=== PATIENT | male | born 1940 ===

== ENCOUNTER 2017-01-13 08:46 | Inpatient (IN) | payer MEDICARE ==
[2017-01-13 08:54] VITALS: BMI 35.2
[2017-01-13] MEDS ORDERED: Sodium Chloride 0.9% 1,000 ML IV STA (09:34)
[2017-01-13] MEDS ORDERED: Iohexol 240 (50 ml) PO ONE (09:34)
[2017-01-13 09:52] LABS: VENOUS BLOOD GAS BASE EXCESS 0.6 mmol/L (0.0-2.0); VENOUS BLOOD GAS PCO2 36 mmHg (40-60); VENOUS BLOOD PH 7.44 (7.32-7.43)
[2017-01-13] MEDS ORDERED: Iohexol 240 (50 ml) ONE (09:59)
[2017-01-13 10:09] LABS: BASO % 0.1 % (0.0-2.0); EOS % 0.1 % (0.0-4.0); HEMATOCRIT 38.7 % (35.0-51.0); LYMPH # 0.2 K/uL (1.0-4.3); LYMPH % 1.7 % (20.0-40.0); MEAN CELL VOLUME 86.7 fl (80.0-94.0); MEAN CORPUSCULAR HEMOGLOBIN 28.9 pg (27.0-31.0); MEAN CORPUSCULAR HGB CONC 33.4 g/dL (33.0-37.0); MEAN PLATELET VOLUME 7.7 fl (7.2-11.7); MONO # 0.2 K/uL (0.0-0.8); MONO % 2.4 % (0.0-10.0); NEUT # 8.9 K/uL (1.8-7.0); NEUT % 95.7 % (50.0-75.0); NRBC % 0.1 % (0.0-0.0); PLATELET COUNT 128 K/uL (130-400); RED CELL DISTRIBUTION WIDTH 13.7 % (11.5-14.5); WHITE BLOOD COUNT 9.3 K/uL (4.8-10.8)
[2017-01-13 10:13] LABS: PARTIAL THROMBOPLASTIN TIME 27.8 Seconds (25.6-37.1)
[2017-01-13 10:25] LABS: ALB/GLOB RATIO 1.2 (1.0-2.1); ALKALINE PHOSPHATASE 73 U/L (38-126); ALT/SGPT 31 U/L (21-72); AST/SGOT 31 U/L (17-59); BILIRUBIN,TOTAL 0.6 mg/dl (0.2-1.3); BLOOD UREA NITROGEN 13 mg/dl (9-20); CALCIUM 8.8 mg/dL (8.4-10.2); CARBON DIOXIDE 24 mmol/L (22-30); CHLORIDE 102 mmol/L (98-107); GFR AFRICAN-AMERICAN > 60; GLUCOSE,RANDOM 184 mg/dL (75-110); MAGNESIUM 1.7 MG/DL (1.6-2.3); PHOSPHOROUS 2.2 mg/dl (2.5-4.5); POTASSIUM 3.7 MMOL/L (3.6-5.0); SODIUM 138 mmol/l (132-148); TOTAL PROTEIN 7.1 G/DL (6.3-8.2)
[2017-01-13 10:34] LABS: RBC URINE 6 /hpf (0-3); URINE BACTERIA OCC (<OCC); URINE BILIRUBIN NEGATIVE (NEGATIVE); URINE BLOOD LARGE (NEGATIVE); URINE COLOR YELLOW (YELLOW); URINE GLUCOSE (UA) NEG (Normal); URINE KETONE NEGATIVE (NEGATIVE); URINE LEUKOCYTE ESTERASE SMALL Leu/uL (Negative); URINE PROTEIN 100 mg/dL (NEGATIVE); URINE UROBILINOGEN 0.2-1.0 mg/dL (0.2-1.0); WBC URINE 24 /hpf (0-5)
[2017-01-13 10:52] LABS: GIANT PLATELETS PRESENT; NEUTROPHIL 92 % (42-75); PLATELET CLUMPS PRESENT; TOTAL CELLS COUNTED 100
--- NOTE | 2017-01-13 11:17 | RAD ---
HISTORY: Sepsis Patient COMPARISON: No prior. FINDINGS: LUNGS: The lungs are well inflated and clear. PLEURA: No significant pleural effusion identified, no pneumothorax apparent. CARDIOVASCULAR: Normal. OSSEOUS STRUCTURES: No significant abnormalities. VISUALIZED UPPER ABDOMEN: Normal. OTHER FINDINGS: None. IMPRESSION: No active pulmonary disease.
--- NOTE | 2017-01-13 12:07 | ED PDOC ---
HPI: General Adult Time Seen by Provider: 01/13/17 09:06 Chief Complaint (Nursing): Fever Chief Complaint (Provider): fever, abdominal pain History Per: Patient History/Exam Limitations: no limitations Onset/Duration Of Symptoms: Days (1), Gradual Current Symptoms Are (Timing): Still Present Additional Complaint(s): 76yo male c/o fever, malaise, upper abdominal pain and generalized weakness, nausea and mild headache since yesterday. Has chronic back pain for which PMD ordered an MRI lumbar spine. Denies urinary symptoms, cough, diarrhea, rash or sore throat. Past Medical History Reviewed: Historical Data, Nursing Documentation, Vital Signs Vital Signs: Last Vital Signs Temp 98.6 F 01/14/17 12:29 Pulse 83 01/14/17 12:29 Resp 20 01/14/17 12:29 BP 102/55 L 01/14/17 12:29 Pulse Ox 96 01/14/17 12:29 - Medical History PMH: Diabetes, HTN, Hypercholesterolemia Other PMH: neuropathy - Surgical History Surgical History: No Surg Hx - Family History Family History: States: Unknown Family Hx - Living Arrangements Living Arrangements: With Family - Social History Current smoker - smoking cessation education provided: No - Home Medications Home Medications: Ambulatory Orders Medication Instructions Recorded Aspirin [Ecotrin] 81 mg PO DAILY 01/13/17 Furosemide [Lasix] 20 mg PO DAILY 01/13/17 Gabapentin [Neurontin] 600 mg PO HS 01/13/17 GlipiZIDE [Glucotrol] 10 mg PO BID 01/13/17 Losartan [Cozaar] 50 mg PO DAILY 01/13/17 Omeprazole [Omeprazole] 20 mg PO DAILY 01/13/17 Simvastatin [Zocor] 20 mg PO DAILY 01/13/17 - Allergies Allergies/Adverse Reactions: Allergies Allergy/AdvReac Type Severity Reaction Status Date / Time No Known Allergies Allergy Verified 01/13/17 09:11 Review of Systems Constitutional: Positive for: Fever, Chills, Weakness, Malaise Eyes: Negative for: Vision Change, Eyelid Inflammation ENT: Negative for: Nose Discharge, Throat Pain Cardiovascular: Negative for: Chest Pain, Palpitations Respiratory: Negative for: Cough, Shortness of Breath Gastrointestinal: Positive for: Nausea, Abdominal Pain. Negative for: Vomiting , Diarrhea Genitourinary Male: Negative for: Dysuria, Hematuria Musculoskeletal: Positive for: Back Pain. Negative for: Neck Pain, Arm Pain, Leg Pain Skin: Negative for: Rash, Lesions, Jaundice Neurological: Negative for: Weakness, Numbness Psych: Negative for: Anxiety Physical Exam - Reviewed Nursing Documentation Reviewed: Yes Vital Signs Reviewed: Yes - Physical Exam Appears: Positive for: Well, Non-toxic, No Acute Distress Head Exam: Positive for: ATRAUMATIC, NORMAL INSPECTION, NORMOCEPHALIC Skin: Positive for: Normal Color, Warm, DRY Eye Exam: Positive for: EOMI, Normal appearance, PERRL ENT: Positive for: Pharyngeal Erythema. Negative for: Tonsillar Exudate, Tonsillar Swelling Neck: Positive for: Normal, Painless ROM Cardiovascular/Chest: Positive for: Regular Rate, Rhythm Respiratory: Positive for: CNT, Normal Breath Sounds Gastrointestinal/Abdominal: Positive for: Bowel Sounds, Soft, Tenderness (upper abd tenderness). Negative for: Guarding, Rebound Back: Positive for: Muscle Spasm Extremity: Positive for: Normal ROM. Negative for: Tenderness, Deformity, Swelling Neurologic/Psych: Positive for: Alert, Oriented. Negative for: Motor/Sensory Deficits - Laboratory Results Result Diagrams: 01/14/17 04:30 01/14/17 04:30 - ECG O2 Sat by Pulse Oximetry: 95 Medical Decision Making Medical Decision Making: patient found to be febrile, workup for sepsis initiated Labs, lactate, IVF bolus, CT abd pelv and CXR, UA ordered. Tylenol given for fever. labs reviewed, revealing negative flu swab, normal WBC, but elevated lactate 2.6 Repeat lactate ordered. Accession No. : [id number] Patient Name / ID : BISHOP DURAN / [id number] Exam Date : 01/13/2017 12:40:12 ( Approved ) Study Comment : Sex / Age : M / 76Y Creator : Jamie Reed MD Dictator : Jamie Reed MD Housing Counselor : Stitching Department Supervisor : Jamie Reed MD Approver2 : Report Date : 01/13/2017 13:50:18 My Comment : PROCEDURE: CT Abdomen and Pelvis with contrast HISTORY: upper abdominal pain, fever COMPARISON: None. TECHNIQUE: Contrast dose: Omnipaque 300, 95 cc Radiation dose: Total exam DLP = 1027.25 mGy-cm. This CT exam was performed using one or more of the following dose reduction techniques: Automated exposure control, adjustment of the mA and/or kV according to patient size, and/or use of iterative reconstruction technique. FINDINGS: LOWER THORAX: Unremarkable. LIVER: Mild hepatic steatosis appreciated there is a small lucency is seen in the right lobe liver inferiorly, artifact by oral contrast in the hepatic flexure. GALLBLADDER AND BILE DUCTS: The gallbladder appears unremarkable however the common bile duct is dilated up to 12 mm with the common hepatic duct dilated to 14 mm without radiodense choledocholithiasis identified. PANCREAS: Unremarkable. No gross lesion or ductal dilatation. SPLEEN: Unremarkable. ADRENALS: Unremarkable. No mass. KIDNEYS AND URETERS: Unremarkable. No hydronephrosis. No solid mass. VASCULATURE: Unremarkable. No aortic aneurysm. BOWEL: Extensive sigmoid diverticulosis identified without diverticulitis. No obstruction. No gross mural thickening. APPENDIX: Normal appendix. PERITONEUM: Unremarkable. No free fluid. No free air. A small umbilical hernia is identified containing only fat. LYMPH NODES: Unremarkable. No enlarged lymph nodes. BLADDER: Unremarkable. REPRODUCTIVE: Mildly enlarged prostate gland noted. BONES: No acute fracture. OTHER FINDINGS: Alternate venous drainage is appreciated at the left chest wall inferiorly. IMPRESSION: 1. Dilated common hepatic and bile ducts are identified without radiodense choledocholithiasis associated. The gallbladder is unremarkable appearing. No prominent medium to small size biliary dilatation throughout the intrahepatic duct system. 2. Extensive sigmoid diverticulosis without diverticulitis. 3. Mild hepatic steatosis. A small lucency is difficult to characterize or artifact from oral contrast at the hepatic flexure at the right lobe liver inferiorly. US RUQ performed, no gallstones present per radiology report. repeat lactate improved Zosyn initiated Admit [facility] Dr Weir/Hilario Armas Disposition - Clinical Impression Clinical Impression: Sepsis, UTI (urinary tract infection), Common bile duct dilatation - Patient ED Disposition Is Patient to be Admitted: Yes - Disposition Disposition Time: 12:05 Condition: GOOD - Pt Status Changed To: Hospital Disposition Of: Inpatient - Admit Certification Admit to Inpatient:: After my assessment, the patient will require hospitalization for at least two midnights. This is because of the severity of symptoms shown, intensity of services needed, and/or the medical risk in this patient being treated as an outpatient. - POA Present On Arrival: None
[2017-01-13] MEDS ORDERED: Iohexol 300 100 ML IJ ONE (12:40)
[2017-01-13] MEDS ORDERED: Sodium Chloride 0.9% 50 ML IV ONE (12:40)
[2017-01-13 13:35] LABS: VENOUS BLOOD GAS BASE EXCESS -0.3 mmol/L (0.0-2.0); VENOUS BLOOD GAS PCO2 38 mmHg (40-60); VENOUS BLOOD PH 7.41 (7.32-7.43)
--- NOTE | 2017-01-13 13:52 | CT ---
PROCEDURE: CT Abdomen and Pelvis with contrast HISTORY: upper abdominal pain, fever COMPARISON: None. TECHNIQUE: Contrast dose: Omnipaque 300, 95 cc Radiation dose: Total exam DLP = 1027.25 mGy-cm. This CT exam was performed using one or more of the following dose reduction techniques: Automated exposure control, adjustment of the mA and/or kV according to patient size, and/or use of iterative reconstruction technique. FINDINGS: LOWER THORAX: Unremarkable. LIVER: Mild hepatic steatosis appreciated there is a small lucency is seen in the right lobe liver inferiorly, artifact by oral contrast in the hepatic flexure. GALLBLADDER AND BILE DUCTS: The gallbladder appears unremarkable however the common bile duct is dilated up to 12 mm with the common hepatic duct dilated to 14 mm without radiodense choledocholithiasis identified. PANCREAS: Unremarkable. No gross lesion or ductal dilatation. SPLEEN: Unremarkable. ADRENALS: Unremarkable. No mass. KIDNEYS AND URETERS: Unremarkable. No hydronephrosis. No solid mass. VASCULATURE: Unremarkable. No aortic aneurysm. BOWEL: Extensive sigmoid diverticulosis identified without diverticulitis. No obstruction. No gross mural thickening. APPENDIX: Normal appendix. PERITONEUM: Unremarkable. No free fluid. No free air. A small umbilical hernia is identified containing only fat. LYMPH NODES: Unremarkable. No enlarged lymph nodes. BLADDER: Unremarkable. REPRODUCTIVE: Mildly enlarged prostate gland noted. BONES: No acute fracture. OTHER FINDINGS: Alternate venous drainage is appreciated at the left chest wall inferiorly. IMPRESSION: 1. Dilated common hepatic and bile ducts are identified without radiodense choledocholithiasis associated. The gallbladder is unremarkable appearing. No prominent medium to small size biliary dilatation throughout the intrahepatic duct system. 2. Extensive sigmoid diverticulosis without diverticulitis. 3. Mild hepatic steatosis. A small lucency is difficult to characterize or artifact from oral contrast at the hepatic flexure at the right lobe liver inferiorly.
[2017-01-13] MEDS ORDERED: Piperacill/Tazo 4.5gm in Dex 4.5 GM/100 ML BAG IVPB STA (14:03)
[2017-01-13] MEDS: Piperacillin/Tazobact 3.375 GM in Sodium Chloride 0.9% 100 ML IVPB SCH ×2 (14:36→21:51)
[2017-01-13] MEDS: Sodium Chloride 0.9% 1,000 ML IV SCH ×2 (14:37→21:52)
--- NOTE | 2017-01-13 16:06 | US ---
HISTORY: RUQ eval CBD/GB/pancreas COMPARISON: None. TECHNIQUE: Sonographic evaluation of the right upper quadrant of the abdomen. FINDINGS: LIVER: Measures 18.9 cm in length. Normal echogenicity of the liver parenchyma. No mass. No intrahepatic bile duct dilatation. However, pattern megaly is not completely excluded. GALLBLADDER: The gallbladder is not fully distended but mural thickening up to 2.8 mm is in question. No pericholecystic fluid collection or cholelithiasis. COMMON BILE DUCT: Measures 12.0 mm. No stones. No dilatation. PANCREAS: The pancreas completely obscured by overlying bowel gas. RIGHT KIDNEY: Measures 11.2 cm in length. Normal echogenicity. No calculus, mass, or hydronephrosis. AORTA: No aneurysmal dilatation. IVC: Unremarkable. OTHER FINDINGS: None . IMPRESSION: Limited examination due to overlying bowel gas and body habitus with pancreas completely obscured. Mild hepatomegaly is in question without definite demonstrated mass or intrahepatic biliary dilatation. Common bile duct is dilated to 12.0 mm without choledocholithiasis. Mildly thickened gallbladder wall is appreciated without cholelithiasis or pericholecystic fluid collection the gallbladder is not fully distended either, limiting the evaluation.
[2017-01-14] MEDS: Piperacillin/Tazobact 3.375 GM in Sodium Chloride 0.9% 100 ML IVPB SCH ×4 (03:10→21:25)
[2017-01-14 05:56] LABS: BASO % 0.8 % (0.0-2.0); EOS % 0.1 % (0.0-4.0); HEMATOCRIT 34.8 % (35.0-51.0); LYMPH # 0.2 K/uL (1.0-4.3); LYMPH % 5.9 % (20.0-40.0); MEAN CELL VOLUME 86.4 fl (80.0-94.0); MEAN CORPUSCULAR HEMOGLOBIN 28.6 pg (27.0-31.0); MEAN CORPUSCULAR HGB CONC 33.1 g/dL (33.0-37.0); MEAN PLATELET VOLUME 7.8 fl (7.2-11.7); MONO # 0.2 K/uL (0.0-0.8); MONO % 5.1 % (0.0-10.0); NEUT # 3.5 K/uL (1.8-7.0); NEUT % 88.1 % (50.0-75.0); NRBC % 0.1 % (0.0-0.0); RED CELL DISTRIBUTION WIDTH 13.8 % (11.5-14.5)
[2017-01-14] MEDS: Sodium Chloride 0.9% 1,000 ML IV SCH ×2 (06:19→17:07)
[2017-01-14 06:26] LABS: ALKALINE PHOSPHATASE 65 U/L (38-126); ALT/SGPT 51 U/L (21-72); AST/SGOT 37 U/L (17-59); BILIRUBIN,TOTAL 0.5 mg/dl (0.2-1.3); BLOOD UREA NITROGEN 10 mg/dl (9-20); CARBON DIOXIDE 23 mmol/L (22-30); CHLORIDE 106 mmol/L (98-107); GFR AFRICAN-AMERICAN > 60; GLUCOSE,RANDOM 138 mg/dL (75-110); POTASSIUM 3.3 MMOL/L (3.6-5.0); SODIUM 136 mmol/l (132-148); TOTAL PROTEIN 5.8 G/DL (6.3-8.2)
[2017-01-14] MEDS ORDERED: Potassium Chloride 20 mEq ER Tab PO ONE (08:21)
--- NOTE | 2017-01-14 08:25 | CP.PCM.HP ---
History of Present Illness - History of Present Illness History of Present Illness: pt admitted for fever, ruq pain, abn UA and dialated cbd on imaging. at present afebrile and w/o pain. no f/c, n/v/d. states symptoms started1 night prior to arrival. imaging and bw noted. k 3.3 today. wbc 4 down from 9. plt noted. Present on Admission - Present on Admission Any Indicators Present on Admission: Yes History of Uncontrolled Diabetes: Yes Review of Systems - Constitutional Constitutional: As Per HPI, Fever, Malaise - Gastrointestinal Gastrointestinal: As Per HPI, Abdominal Pain Past Patient History - Past Medical History & Family History Past Medical History?: Yes - Past Social History Smoking Status: Never Smoked - CARDIAC Hx Cardiac Disorders: Yes Hx Hypercholesterolemia: Yes Hx Hypertension: Yes - PULMONARY Hx Respiratory Disorders: No - NEUROLOGICAL Hx Neurological Disorder: No - HEENT Hx HEENT Problems: No - RENAL Hx Chronic Kidney Disease: No - ENDOCRINE/METABOLIC Hx Endocrine Disorders: Yes Hx Diabetes Mellitus Type 2: Yes - HEMATOLOGICAL/ONCOLOGICAL Hx Blood Disorders: No - INTEGUMENTARY Hx Dermatological Problems: No - MUSCULOSKELETAL/RHEUMATOLOGICAL Hx Musculoskeletal Disorders: No Hx Falls: No - GASTROINTESTINAL Hx Gastrointestinal Disorders: No - GENITOURINARY/GYNECOLOGICAL Hx Genitourinary Disorders: No - PSYCHIATRIC Hx Psychophysiologic Disorder: No Hx Substance Use: No - SURGICAL HISTORY Hx Surgeries: Yes Other/Comment: Hemorrhoidectomy - ANESTHESIA Hx Anesthesia: Yes Hx Anesthesia Reactions: No Hx Malignant Hyperthermia: No Has any member of the family had a problem w/ anesthesia?: No Meds Allergies/Adverse Reactions: Allergies Allergy/AdvReac Type Severity Reaction Status Date / Time No Known Allergies Allergy Verified 01/13/17 09:11 Physical Exam - Constitutional Appears: Well, Non-toxic, No Acute Distress - Head Exam Head Exam: ATRAUMATIC, NORMAL INSPECTION, NORMOCEPHALIC - Eye Exam Eye Exam: EOMI, Normal appearance, PERRL Pupil Exam: NORMAL ACCOMODATION, PERRL - ENT Exam ENT Exam: Mucous Membranes Moist, Normal Exam - Neck Exam Neck exam: Positive for: Normal Inspection - Respiratory Exam Respiratory Exam: Clear to Auscultation Bilateral, NORMAL BREATHING PATTERN - Cardiovascular Exam Cardiovascular Exam: REGULAR RHYTHM, RRR, +S1, +S2 - GI/Abdominal Exam GI & Abdominal Exam: Normal Bowel Sounds, Soft. absent: Tenderness - Extremities Exam Extremities exam: Positive for: full ROM, normal capillary refill, normal inspection, pedal pulses present - Back Exam Back exam: NORMAL INSPECTION - Neurological Exam Neurological exam: Alert, CN II-XII Intact, Normal Gait, Oriented x3, Reflexes Normal - Psychiatric Exam Psychiatric exam: Normal Affect, Normal Mood - Skin Skin Exam: Dry, Intact, Normal Color, Warm Results - Vital Signs Recent Vital Signs: Last Vital Signs Temp 98.5 F 01/14/17 05:26 Pulse 74 01/14/17 05:26 Resp 20 01/14/17 05:26 BP 98/54 L 01/14/17 05:26 Pulse Ox 95 01/14/17 05:26 - Labs Result Diagrams: 01/14/17 04:30 01/14/17 04:30 Labs: Laboratory Results - last 24 hr 01/13/17 01/13/17 01/13/17 09:30 09:38 09:57 WBC 9.3 RBC 4.47 Hgb 12.9 Hct 38.7 MCV 86.7 MCH 28.9 MCHC 33.4 RDW 13.7 Plt Count 128 L MPV 7.7 Neut % (Auto) 95.7 H Lymph % (Auto) 1.7 L [place] % (Auto) 2.4 Eos % (Auto) 0.1 Baso % (Auto) 0.1 Neut # 8.9 H Lymph # 0.2 L [place] # 0.2 Eos # 0.0 Baso # 0.0 Neutrophils % (Manual) 92 H Band Neutrophils % 3 H Lymphocytes % (Manual) 3 L Monocytes % (Manual) 2 Platelet Estimate Slightly decreased L Plt Clumps, EDTA Present Giant Platelets Present PT INR APTT pO2 40 VBG pH 7.44 H VBG pCO2 36 L VBG HCO3 24.9 VBG Total CO2 25.6 VBG O2 Sat (Calc) 85.3 H VBG Base Excess 0.6 VBG Potassium 3.5 L A-a O2 Difference 65.0 Sodium 134.0 Chloride 101.0 Glucose 205 H Lactate 2.6 H FiO2 21.0 Crit Value Called To Magno tomlinson Crit Value Called By 15 Crit Value Read Back Y Blood Gas Notified Time 953 Potassium Carbon Dioxide Anion Gap BUN Creatinine Est GFR ( Amer) Est GFR (Non-Af Amer) Random Glucose Calcium Phosphorus Magnesium Total Bilirubin AST ALT Alkaline Phosphatase Total Protein Albumin Globulin Albumin/Globulin Ratio Lipase 26 Venous Blood Potassium 3.5 L Urine Color Urine Clarity Urine pH Ur Specific Martin Urine Protein Urine Glucose (UA) Urine Ketones Urine Blood Urine Nitrate Urine Bilirubin Urine Urobilinogen Ur Leukocyte Esterase Urine RBC (Auto) Urine Microscopic WBC Urine Bacteria Influenza Typ A,B (EIA) 01/13/17 01/13/17 01/13/17 09:57 09:57 09:57 WBC RBC Hgb Hct MCV MCH MCHC RDW Plt Count MPV Neut % (Auto) Lymph % (Auto) [place] % (Auto) Eos % (Auto) Baso % (Auto) Neut # Lymph # [place] # Eos # Baso # Neutrophils % (Manual) Band Neutrophils % Lymphocytes % (Manual) Monocytes % (Manual) Platelet Estimate Plt Clumps, EDTA Giant Platelets PT 15.0 H INR 1.3 H APTT 27.8 pO2 VBG pH VBG pCO2 VBG HCO3 VBG Total CO2 VBG O2 Sat (Calc) VBG Base Excess VBG Potassium A-a O2 Difference Sodium 138 Chloride 102 Glucose Lactate FiO2 Crit Value Called To Crit Value Called By Crit Value Read Back Blood Gas Notified Time Potassium 3.7 Carbon Dioxide 24 Anion Gap 15 BUN 13 Creatinine 1.0 Est GFR ( Amer) > 60 Est GFR (Non-Af Amer) > 60 Random Glucose 184 H Calcium 8.8 Phosphorus 2.2 L Magnesium 1.7 Total Bilirubin 0.6 AST 31 ALT 31 Alkaline Phosphatase 73 Total Protein 7.1 Albumin 3.8 Globulin 3.2 Albumin/Globulin Ratio 1.2 Lipase Venous Blood Potassium Urine Color Urine Clarity Urine pH Ur Specific Martin Urine Protein Urine Glucose (UA) Urine Ketones Urine Blood Urine Nitrate Urine Bilirubin Urine Urobilinogen Ur Leukocyte Esterase Urine RBC (Auto) Urine Microscopic WBC Urine Bacteria Influenza Typ A,B (EIA) Negative for flu a/b 01/13/17 01/13/17 01/14/17 09:57 13:30 04:30 WBC 4.0 L D RBC 4.03 L Hgb 11.5 L Hct 34.8 L MCV 86.4 MCH 28.6 MCHC 33.1 RDW 13.8 Plt Count 103 L D MPV 7.8 Neut % (Auto) 88.1 H Lymph % (Auto) 5.9 L [place] % (Auto) 5.1 Eos % (Auto) 0.1 Baso % (Auto) 0.8 Neut # 3.5 Lymph # 0.2 L [place] # 0.2 Eos # 0.0 Baso # 0.0 Neutrophils % (Manual) Band Neutrophils % Lymphocytes % (Manual) Monocytes % (Manual) Platelet Estimate Plt Clumps, EDTA Giant Platelets PT INR APTT pO2 34 VBG pH 7.41 VBG pCO2 38 L VBG HCO3 23.8 VBG Total CO2 25.3 VBG O2 Sat (Calc) 78.2 H VBG Base Excess -0.3 L VBG Potassium 3.3 L A-a O2 Difference 68.0 Sodium 134.0 Chloride 103.0 Glucose 144 H Lactate 1.4 FiO2 21.0 Crit Value Called To Md mayra snell Crit Value Called By 15 Crit Value Read Back Y Blood Gas Notified Time 1334 Potassium Carbon Dioxide Anion Gap BUN Creatinine Est GFR ( Amer) Est GFR (Non-Af Amer) Random Glucose Calcium Phosphorus Magnesium Total Bilirubin AST ALT Alkaline Phosphatase Total Protein Albumin Globulin Albumin/Globulin Ratio Lipase Venous Blood Potassium 3.3 L Urine Color Yellow Urine Clarity Slighty-cloudy Urine pH 5.0 Ur Specific Martin 1.025 Urine Protein 100 Urine Glucose (UA) Neg Urine Ketones Negative Urine Blood Large Urine Nitrate Negative Urine Bilirubin Negative Urine Urobilinogen 0.2-1.0 Ur Leukocyte Esterase Small Urine RBC (Auto) 6 H Urine Microscopic WBC 24 H Urine Bacteria Occ H Influenza Typ A,B (EIA) 01/14/17 04:30 WBC RBC Hgb Hct MCV MCH MCHC RDW Plt Count MPV Neut % (Auto) Lymph % (Auto) [place] % (Auto) Eos % (Auto) Baso % (Auto) Neut # Lymph # [place] # Eos # Baso # Neutrophils % (Manual) Band Neutrophils % Lymphocytes % (Manual) Monocytes % (Manual) Platelet Estimate Plt Clumps, EDTA Giant Platelets PT INR APTT pO2 VBG pH VBG pCO2 VBG HCO3 VBG Total CO2 VBG O2 Sat (Calc) VBG Base Excess VBG Potassium A-a O2 Difference Sodium 136 Chloride 106 Glucose Lactate FiO2 Crit Value Called To Crit Value Called By Crit Value Read Back Blood Gas Notified Time Potassium 3.3 L Carbon Dioxide 23 Anion Gap 11 BUN 10 Creatinine 1.0 Est GFR ( Amer) > 60 Est GFR (Non-Af Amer) > 60 Random Glucose 138 H Calcium 8.0 L Phosphorus Magnesium Total Bilirubin 0.5 AST 37 ALT 51 Alkaline Phosphatase 65 Total Protein 5.8 L Albumin 2.9 L D Globulin 2.9 Albumin/Globulin Ratio 1.0 Lipase Venous Blood Potassium Urine Color Urine Clarity Urine pH Ur Specific Martin Urine Protein Urine Glucose (UA) Urine Ketones Urine Blood Urine Nitrate Urine Bilirubin Urine Urobilinogen Ur Leukocyte Esterase Urine RBC (Auto) Urine Microscopic WBC Urine Bacteria Influenza Typ A,B (EIA) Assessment & Plan (1) Fever Assessment and Plan: tylenol/motrin ivf f/u c/s zosyn Status: Acute (2) UTI (urinary tract infection) Assessment and Plan: zosyn f/u c/s ivf Status: Acute (3) DVT prophylaxis Assessment and Plan: scd and ae hose ambulation Status: Acute (4) Diabetes type 2, uncontrolled Assessment and Plan: fsbg, home meds insulin prn Status: Acute (5) Common bile duct dilatation Assessment and Plan: no obv stone or cholecystitis. no pain at present will monitor, gi/surgery consult prn Status: Acute Decision To Admit - Pt Status Changed To: Hospital Disposition Of: Inpatient - Admit Certification Admit to Inpatient:: After my assessment, the patient will require hospitalization for at least two midnights. This is because of the severity of symptoms shown, intensity of services needed, and/or the medical risk in this patient being treated as an outpatient. - . Bed Request Type: Telemetry Admitting Physician: Shanda Weir
[2017-01-14] MEDS ORDERED: Pantoprazole 40 mg EC Tab PO SCH (09:00)
[2017-01-14] MEDS: Pantoprazole 20 mg EC Tab PO SCH (09:43)
--- NOTE | 2017-01-14 11:56 | CARD ---
APPROVED REPORT EKG Measurement Heart [id number] <Conclusion> Normal sinus rhythm Right bundle branch block Left anterior fascicular block Bifascicular block Voltage criteria for left ventricular hypertrophy Abnormal ECG
--- NOTE | 2017-01-14 13:34 | CP.PCM.CON ---
History of Present Illness - History of Present Illness History of Present Illness: 76yo male c/o fever, malaise, upper abdominal pain and generalized weakness, nausea and mild headache since yesterday. Has chronic back pain for which PMD ordered an MRI lumbar spine. Denies urinary symptoms, cough, diarrhea, rash or sore throat. found to have urosepsis dehydration + Blood cultures - Medical History PMH: Diabetes, HTN, Hypercholesterolemia Other PMH: neuropathy Review of Systems - Constitutional Constitutional: As Per HPI - EENT Eyes: absent: As Per HPI, Blind Spots, Blurred Vision, Change in Vision, Decreased Night Vision, Diplopia, Discharge, Dry Eye, Exophthalmos, Floaters, Irritation, Itchy Eyes, Loss of Peripheral Vision, Pain, Photophobia, Requires Corrective Lenses, Sees Flashes, Spots in Vision, Tunnel Vision, Other Visual Disturbances, Loss of Vision, Other Ears: absent: As Per HPI, Decreased Hearing, Ear Discharge, Ear Pain, Tinnitus, Abnormal Hearing, Disequilibrium, Dizziness, Other Nose/Mouth/Throat: absent: As Per HPI, Epistaxis, Nasal Congestion, Nasal Discharge, Nasal Obstruction, Nasal Trauma, Nose Pain, Post Nasal Drip, Sinus Pain, Sinus Pressure, Bleeding Gums, Change in Voice, Dental Pain, Dry Mouth, Dysphagia, Halitosis, Hoarsness, Lip Swelling, Mouth Lesions, Mouth Pain, Odynophagia, Sore Throat, Throat Swelling, Tongue Swelling, Facial Pain, Neck Pain, Neck Mass, Other - Cardiovascular Cardiovascular: absent: As Per HPI, Acrocyanosis, Chest Pain, Chest Pain at Rest , Chest Pain with Activity, Claudication, Diaphoresis, Dyspnea, Dyspnea on Exertion, Edema, Irregular Heart Rhythm, Pain Radiating to Arm/Neck/Jaw, Leg Edema, Leg Ulcers, Lightheadedness, Orthopnea, Palpitations, Paroxysmal Nocturnal Dyspnea, Pedal Edema, Radiating Pain, Rapid Heart Rate, Slow Heart Rate, Syncope, Other - Respiratory Respiratory: absent: As Per HPI, Cough, Dyspnea, Hemoptysis, Dyspnea on Exertion , Wheezing, Snoring, Stridor, Pain on Inspiration, Chest Congestion, Excessive Mucous Production, Change in Mucous Color, Pain with Coughing, Other - Gastrointestinal Gastrointestinal: As Per HPI, Abdominal Pain - Genitourinary Genitourinary: As Per HPI, Change in Urinary Stream - Musculoskeletal Musculoskeletal: absent: As Per HPI, Abnormal Gait, Arthralgias, Atrophy, Back Pain, Deformity, Joint Swelling, Limited Range of Motion, Loss of Height, Muscle Cramps, Muscle Weakness, Myalgias, Neck Pain, Numbness, Radiating Pain into Limb, Stiffness, Tingling, Other - Integumentary Integumentary: absent: As Per HPI, Acne, Alopecia, Bleeding Lesions, Change in Hair, Change in Nails, Change in Pigmentation, Changing Lesions, Dry Skin, Erythema, Furuncle, Hirsutism, Lesions, New Lesions, Non-Healing Lesions, Photosensitivity, Pruritus, Rash, Skin Pain, Skin Ulcer, Sores, Striae, Swelling , Unusual Bruising, Wounds, Jaundice, Other - Neurological Neurological: absent: As Per HPI, Abnormal Gait, Abnormal Hearing, Abnormal Movements, Abnormal Speech, Behavioral Changes, Burning Sensations, Confusion, Convulsions, Disequilibrium, Dizziness, Numbness, Focal Weakness, Frequent Falls , Headaches, Lack of Coordination, Loss of Vision, Memory Loss, Paresthesias, Radicular Pain, Restless Legs, Sensory Deficit, Syncope, Tingling, Tremor, Vertigo, Weakness, Other Visual Disturbances, Other - Psychiatric Psychiatric: absent: As Per HPI, Abnormal Sleep Pattern, Anhedonia, Anxiety, Auditory Hallucinations, Behavioral Changes, Change in Appetite, Change in Libido, Confusion, Depression, Difficulty Concentrating, Hallucinations, Homicidal Ideation, Hopelessness, Irritability, Memory Loss, Mood Swings, Panic Attacks, Paranoia, Suicidal Ideation, Visual Hallucinations, Tactile Hallucinations, Other - Endocrine Endocrine: absent: As Per HPI, Change in Body Appearance, Change in Libido, Cold Intolorance, Deepening of Voice, Excessive Sweating, Fatigue, Flushing, Heat Intolorance, Increase in Ring/Shoe/Hat Size, Palpitations, Polydipsia, Polyphagia, Polyuria, Other - Hematologic/Lymphatic Hematologic: absent: As Per HPI, Easy Bleeding, Easy Bruising, Lymphadenopathy, Other Past Patient History - Past Medical History & Family History Past Medical History?: Yes - Past Social History Smoking Status: Never Smoked - CARDIAC Hx Cardiac Disorders: Yes Hx Hypercholesterolemia: Yes Hx Hypertension: Yes - PULMONARY Hx Respiratory Disorders: No - NEUROLOGICAL Hx Neurological Disorder: No - HEENT Hx HEENT Problems: No - RENAL Hx Chronic Kidney Disease: No - ENDOCRINE/METABOLIC Hx Endocrine Disorders: Yes Hx Diabetes Mellitus Type 2: Yes - HEMATOLOGICAL/ONCOLOGICAL Hx Blood Disorders: No - INTEGUMENTARY Hx Dermatological Problems: No - MUSCULOSKELETAL/RHEUMATOLOGICAL Hx Musculoskeletal Disorders: No Hx Falls: No - GASTROINTESTINAL Hx Gastrointestinal Disorders: No - GENITOURINARY/GYNECOLOGICAL Hx Genitourinary Disorders: No - PSYCHIATRIC Hx Psychophysiologic Disorder: No Hx Substance Use: No - SURGICAL HISTORY Hx Surgeries: Yes Other/Comment: Hemorrhoidectomy - ANESTHESIA Hx Anesthesia: Yes Hx Anesthesia Reactions: No Hx Malignant Hyperthermia: No Has any member of the family had a problem w/ anesthesia?: No Meds Allergies/Adverse Reactions: Allergies Allergy/AdvReac Type Severity Reaction Status Date / Time No Known Allergies Allergy Verified 01/13/17 09:11 - Medications Medications: Current Medications Acetaminophen (Tylenol 325mg Tab) 975 mg PO ONCE PRN PRN Reason: Fever >100.4 F Last Admin: 01/13/17 10:00 Dose: 975 mg Acetaminophen (Tylenol 325mg Tab) 650 mg PO Q4 PRN PRN Reason: Fever >100.4 F Last Admin: 01/14/17 03:08 Dose: 650 mg Aspirin (Ecotrin) 81 mg PO DAILY [facility] Last Admin: 01/14/17 09:42 Dose: 81 mg Atorvastatin Calcium (Lipitor) 10 mg PO HS [facility] Furosemide (Lasix) 20 mg PO DAILY [facility] Last Admin: 01/14/17 09:42 Dose: 20 mg Gabapentin (Neurontin) 600 mg PO HS [facility] Glipizide (Glucotrol) 10 mg PO BID [facility] Last Admin: 01/14/17 09:41 Dose: 10 mg Sodium Chloride (Sodium Chloride 0.9%) 1,000 mls @ 125 mls/hr IV .Q8H [facility] Stop: 01/14/17 14:30 Last Admin: 01/14/17 06:19 Dose: Not Given Piperacillin Sod/Tazobactam (Sod 3.375 gm/ Sodium Chloride) 100 mls @ 100 mls/ hr IVPB Q6 [facility] PRN Reason: Protocol Last Admin: 01/14/17 09:41 Dose: 100 mls/hr Ibuprofen (Motrin Tab) 600 mg PO Q6 PRN PRN Reason: Fever >100.4 F Losartan Potassium (Cozaar) 50 mg PO DAILY [facility] Last Admin: 01/14/17 09:41 Dose: 50 mg Pantoprazole Sodium (Protonix Ec Tab) 20 mg PO DAILY [facility] Last Admin: 01/14/17 09:43 Dose: 20 mg Physical Exam - Constitutional Appears: Non-toxic, Chronically Ill - Head Exam Head Exam: NORMOCEPHALIC - Eye Exam Eye Exam: PERRL. absent: Scleral icterus - ENT Exam ENT Exam: Mucous Membranes Dry, Normal External Ear Exam - Neck Exam Neck exam: Negative for: Lymphadenopathy - Respiratory Exam Respiratory Exam: Decreased Breath Sounds, Clear to Auscultation Bilateral - Cardiovascular Exam Cardiovascular Exam: REGULAR RHYTHM, +S1, +S2 - GI/Abdominal Exam GI & Abdominal Exam: Diminished Bowel Sounds, Distended, Soft. absent: Tenderness - Rectal Exam Rectal Exam: Deferred - Exam Exam: NORMAL INSPECTION - Extremities Exam Extremities exam: Positive for: pedal pulses present. Negative for: calf tenderness, pedal edema, tenderness - Back Exam Back exam: absent: CVA tenderness (L), CVA tenderness (R) - Neurological Exam Neurological exam: Alert, CN II-XII Intact, Oriented x3, Reflexes Normal - Psychiatric Exam Psychiatric exam: Normal Mood - Skin Skin Exam: Dry Results - Vital Signs Recent Vital Signs: Last Vital Signs Temp 98.6 F 01/14/17 12:29 Pulse 83 01/14/17 12:29 Resp 20 01/14/17 12:29 BP 102/55 L 01/14/17 12:29 Pulse Ox 96 01/14/17 12:29 - Labs Result Diagrams: 01/14/17 04:30 01/14/17 04:30 Labs: Laboratory Results - last 24 hr 01/13/17 01/14/17 01/14/17 13:30 04:30 04:30 WBC 4.0 L D RBC 4.03 L Hgb 11.5 L Hct 34.8 L MCV 86.4 MCH 28.6 MCHC 33.1 RDW 13.8 Plt Count 103 L D MPV 7.8 Neut % (Auto) 88.1 H Lymph % (Auto) 5.9 L [place] % (Auto) 5.1 Eos % (Auto) 0.1 Baso % (Auto) 0.8 Neut # 3.5 Lymph # 0.2 L [place] # 0.2 Eos # 0.0 Baso # 0.0 pO2 34 VBG pH 7.41 VBG pCO2 38 L VBG HCO3 23.8 VBG Total CO2 25.3 VBG O2 Sat (Calc) 78.2 H VBG Base Excess -0.3 L VBG Potassium 3.3 L A-a O2 Difference 68.0 Sodium 134.0 136 Chloride 103.0 106 Glucose 144 H Lactate 1.4 FiO2 21.0 Crit Value Called To Md mayra snell Crit Value Called By 15 Crit Value Read Back Y Blood Gas Notified Time 1334 Potassium 3.3 L Carbon Dioxide 23 Anion Gap 11 BUN 10 Creatinine 1.0 Est GFR ( Amer) > 60 Est GFR (Non-Af Amer) > 60 Random Glucose 138 H Calcium 8.0 L Total Bilirubin 0.5 AST 37 ALT 51 Alkaline Phosphatase 65 Total Protein 5.8 L Albumin 2.9 L D Globulin 2.9 Albumin/Globulin Ratio 1.0 Venous Blood Potassium 3.3 L Assessment & Plan (1) Pancytopenia Status: Acute (2) Common bile duct dilatation Status: Acute (3) Diabetes type 2, uncontrolled Status: Acute (4) Fever Status: Acute (5) UTI (urinary tract infection) Status: Acute - Assessment and Plan (Free Text) Assessment: await GI eval cont IV antibiotics min 7 days consider eval
[2017-01-15] MEDS: Piperacillin/Tazobact 3.375 GM in Sodium Chloride 0.9% 100 ML IVPB SCH ×4 (03:53→21:23)
[2017-01-15 05:59] LABS: BASO % 0.8 % (0.0-2.0); EOS # 0.1 K/uL (0.0-0.7); HEMATOCRIT 35.4 % (35.0-51.0); LYMPH # 0.8 K/uL (1.0-4.3); LYMPH % 16.8 % (20.0-40.0); MEAN CORPUSCULAR HEMOGLOBIN 28.4 pg (27.0-31.0); MEAN CORPUSCULAR HGB CONC 33.1 g/dL (33.0-37.0); MEAN PLATELET VOLUME 7.7 fl (7.2-11.7); MONO # 0.4 K/uL (0.0-0.8); MONO % 9.4 % (0.0-10.0); NEUT # 3.2 K/uL (1.8-7.0); RED CELL DISTRIBUTION WIDTH 13.6 % (11.5-14.5); WHITE BLOOD COUNT 4.5 K/uL (4.8-10.8)
[2017-01-15 06:16] LABS: ALKALINE PHOSPHATASE 74 U/L (38-126); ALT/SGPT 46 U/L (21-72); AST/SGOT 43 U/L (17-59); BILIRUBIN,TOTAL 0.3 mg/dl (0.2-1.3); BLOOD UREA NITROGEN 10 mg/dl (9-20); CALCIUM 7.9 mg/dL (8.4-10.2); CARBON DIOXIDE 25 mmol/L (22-30); CHLORIDE 107 mmol/L (98-107); GFR AFRICAN-AMERICAN > 60; GLUCOSE,RANDOM 68 mg/dL (75-110); POTASSIUM 3.3 MMOL/L (3.6-5.0); SODIUM 140 mmol/l (132-148); TOTAL PROTEIN 5.8 G/DL (6.3-8.2)
[2017-01-15] MEDS ORDERED: Potassium Chloride 20 mEq/15 ml LIQ UD PO ONE (06:56)
--- NOTE | 2017-01-15 07:39 | CP.PCM.PN ---
Subjective - Date & Time of Evaluation Date of Evaluation: 01/15/17 Time of Evaluation: 07:39 - Subjective Subjective: pt in no distress/complaints. no f/c, n/v/d. + blood and urine c/s for gram neg rods. mrcp today. for iv anbx x 1 wk per ID. Objective - Vital Signs/Intake and Output Vital Signs (last 24 hours): Temp Pulse Resp BP Pulse Ox 98.4 F 85 18 119/72 95 01/15/17 05:17 01/15/17 05:17 01/15/17 05:17 01/15/17 05:17 01/15/17 05:17 Intake and Output: 01/15/17 01/15/17 06:59 18:59 Intake Total 1325 Balance 1325 - Medications Medications: Current Medications Acetaminophen (Tylenol 325mg Tab) 975 mg PO ONCE PRN PRN Reason: Fever >100.4 F Last Admin: 01/13/17 10:00 Dose: 975 mg Acetaminophen (Tylenol 325mg Tab) 650 mg PO Q4 PRN PRN Reason: Fever >100.4 F Last Admin: 01/14/17 03:08 Dose: 650 mg Aspirin (Ecotrin) 81 mg PO DAILY [facility] Last Admin: 01/14/17 09:42 Dose: 81 mg Atorvastatin Calcium (Lipitor) 10 mg PO HS [facility] Last Admin: 01/14/17 21:25 Dose: 10 mg Enoxaparin Sodium (Lovenox) 40 mg SC DAILY [facility] PRN Reason: Protocol Furosemide (Lasix) 20 mg PO DAILY [facility] Last Admin: 01/14/17 09:42 Dose: 20 mg Gabapentin (Neurontin) 600 mg PO HS [facility] Last Admin: 01/14/17 21:25 Dose: 600 mg Glipizide (Glucotrol) 10 mg PO BID [facility] Last Admin: 01/14/17 17:07 Dose: 10 mg Piperacillin Sod/Tazobactam (Sod 3.375 gm/ Sodium Chloride) 100 mls @ 100 mls/ hr IVPB Q6 [facility] PRN Reason: Protocol Last Admin: 01/15/17 03:53 Dose: 100 mls/hr Ibuprofen (Motrin Tab) 600 mg PO Q6 PRN PRN Reason: Fever >100.4 F Losartan Potassium (Cozaar) 50 mg PO DAILY [facility] Last Admin: 01/14/17 09:41 Dose: 50 mg Pantoprazole Sodium (Protonix Ec Tab) 20 mg PO DAILY [facility] Last Admin: 01/14/17 09:43 Dose: 20 mg Potassium Chloride (Potassium Chloride Oral Soln) 20 meq PO ONCE [facility] Stop: 01/15/17 06:57 - Labs Labs: 01/15/17 05:40 01/15/17 05:40 PT 15.0 Seconds (9.8-13.1) H 01/13/17 09:57 INR 1.3 (0.9-1.2) H 01/13/17 09:57 APTT 27.8 Seconds (25.6-37.1) 01/13/17 09:57 - Constitutional Appears: Well, Non-toxic, No Acute Distress - Head Exam Head Exam: ATRAUMATIC, NORMAL INSPECTION, NORMOCEPHALIC - Eye Exam Eye Exam: EOMI, Normal appearance, PERRL Pupil Exam: NORMAL ACCOMODATION, PERRL - ENT Exam ENT Exam: Mucous Membranes Moist, Normal Exam - Neck Exam Neck Exam: Full ROM, Normal Inspection. absent: Lymphadenopathy - Respiratory Exam Respiratory Exam: Clear to Ausculation Bilateral, NORMAL BREATHING PATTERN - Cardiovascular Exam Cardiovascular Exam: REGULAR RHYTHM, RRR, +S1, +S2. absent: Murmur - GI/Abdominal Exam GI & Abdominal Exam: Soft, Normal Bowel Sounds. absent: Tenderness - Extremities Exam Extremities Exam: Full ROM, Normal Capillary Refill, Normal Inspection. absent : Joint Swelling, Pedal Edema - Back Exam Back Exam: NORMAL INSPECTION - Neurological Exam Neurological Exam: Alert, Awake, CN II-XII Intact, Normal Gait, Oriented x3 - Psychiatric Exam Psychiatric exam: Normal Affect, Normal Mood - Skin Skin Exam: Dry, Intact, Normal Color, Warm Assessment and Plan (1) Fever Status: Acute (2) UTI (urinary tract infection) Status: Acute (3) DVT prophylaxis Status: Acute (4) Diabetes type 2, uncontrolled Status: Acute (5) Common bile duct dilatation Status: Acute - Assessment and Plan (Free Text) Assessment: (1) Fever Assessment and Plan: tylenol/motrin ivf f/u c/s zosyn likely urosepsis Status: Acute (2) UTI (urinary tract infection) Assessment and Plan: zosyn f/u c/s ivf Status: Acute (3) DVT prophylaxis Assessment and Plan: scd and ae hose ambulation lovenox Status: Acute (4) Diabetes type 2, uncontrolled Assessment and Plan: fsbg, home meds insulin prn Status: Acute (5) Common bile duct dilatation Assessment and Plan: no obv stone or cholecystitis. no pain at present will monitor, gi/surgery consult prn mrcp today Status: Acute ?? tcu if mrcp normal
[2017-01-15] MEDS ORDERED: Gadodiamide 287 MG/ML VIAL (15ML) IV ONE (08:11)
[2017-01-15] MEDS ORDERED: Sodium Chloride 0.9% 50 ML IV ONE (08:11)
[2017-01-15] MEDS: Pantoprazole 20 mg EC Tab PO SCH (10:10)
--- NOTE | 2017-01-15 12:16 | MRI ---
MRI abdomen without/with IV contrast MRCP Indication: Dilated CBD Technique: Multiplanar, multi sequence magnetic resonance images of the abdomen were obtained without and with the administration of intravenous gadolinium using a multi phase abdomen protocol. Rotating maximum intensity projection images of the biliary system were generated. A total of 1265 images submitted for review Comparison: CT abdomen and pelvis with contrast performed 01/13/17, limited abdominal ultrasound performed 01/13/17 Findings: Examination limited by habitus and patient motion. Common bile duct is dilated measuring approximately 16 mm in diameter with abrupt irregular distal taper. Filling defect within the distal common bile duct is identified; neoplasm, sludge, calculus are included in the differential. No significant intrahepatic biliary ductal dilatation. The pancreatic duct appears within normal limits of caliber. Too small to characterize hepatic nonenhancing T1 focus. The gallbladder appears unremarkable. The liver, spleen, pancreas, and adrenal glands appear otherwise unremarkable. The kidneys enhance symmetrically. No obstructing calculus or hydronephrosis identified. No bulky adenopathy identified. Limited views of the inferior thorax appear unremarkable. Impression: Common bile duct is dilated measuring approximately 16 mm in diameter with abrupt irregular distal taper. Filling defect within the distal common bile duct is identified; neoplasm, sludge, calculus are included in the differential. Recommend further evaluation with ERCP if indicated.
--- NOTE | 2017-01-15 13:58 | PQF GENQUE ---
Hilario Armas FREIGHT FLAGMAN, 2 (two) queries as follows: (1) In agreement with ER MD: Clinical Impression: Sepsis, UTI (please note there is no ICD-10 code for urosepsis) (2) If in agreement Etiology of Sepsis ? if known OR:Disagree OR: Other explanation of clinical finding WBC:9.3->4.0 with a left shift RBC:4.47->43 H/H:12.9/38.7->11.5/34.8 Platelet:128->103 Temp.:01/13: 101.3 on 01/14 temp max so far:101.6 Pulse:104->99->90 Respirations: 20->19->16->26-.23-.23 ER; note cc: fever , abdominal pain ROS : Constitutional: Positive for: Fever, Chills, Weakness, Malaise MDM: patient found to be febrile, workup for sepsis initiated Labs, lactate, IVF bolus, CT abd pelv and CXR, UA ordered. Tylenol given for fever. labs reviewed, revealing negative flu swab, normal WBC, but elevated lactate 2.6 Repeat lactate ordered. Clinical Impression: Sepsis, UTI (urinary tract infection), &Common bile duct dilatation H and P; pt admitted for fever, ruq pain, abn UA and dialated cbd on Imagingpt-- . at present afebrile and w/o pain--k 3.3 today. wbc 4 down from 9. plt noted. Ass: (1) Fever: tylenol/motrin ivf f/u c/s zosyn Status: Acute (2) UTI (urinary tract infection) zosyn f/u c/s ivf Status:Acute (3) DVT prophylaxis: scd and ae hose ambulation Status: Acute (4) DM 2, uncontrolled Assessment and Plan: fsbg, home meds insulin prn Status: Acute (5) Common bile duct dilatation Assess: no obv stone or cholecystitis. no pain at present will monitor, gi/surgery consult prnUpdate 01/14 ID note: found to have urosepsis dehydration + Blood cultures 01/15 progress note FREIGHT FLAGMAN:---+ blood and urine c/s for gram neg rods. mrcp today. for iv anbx x 1 wk per ID. This form is a permanent part of the medical record Clarification of your documentation is requested to better reflect the severity of illness and intensity of treatment of your patient. Indicators present [] Specify: [] [] Specify: [] [] Specify: [] [] Specify: [] Location in the medical record that reflects the above clinical findings: [] Treatment Provided: [] PHYSICIAN'S RESPONSE Based on your medical judgment of the clinical indicators outlined above please clarify the following: [] Practitioner response urosepsis, bacteremia due to uti [] If unable to determine, please check the box, sign and date. Present On Admission (POA) Indicator: [x] Present at the time of admission [] Not present at the time of admission [] Clinically Undetermined In responding to this query, please exercise your independent professional judgment. The fact that a question is asked does not imply that any particular answer is desired or expected. Thank you for your clarification on this documentation. If you have any questions please call. * Thank you, Miriam Huddleston RN ext. #[phone] MTDD
[2017-01-15] MEDS: Enoxaparin 40 mg Syringe SC SCH (14:18)
--- NOTE | 2017-01-15 16:25 | CON ---
DATE: 01/14/2017 REFERRING PHYSICIAN: REASON FOR CONSULTATION: COPD. HISTORY OF PRESENT ILLNESS: This is a dangelo 76-year-old man, comes in with a chief complaint of right-sided abdominal pain, fevers, abnormal UA, imaging. He complains of some diarrhea as well. From sepsis workup, he is actually doing better now. The patient has no pain, no fevers, no chills, no nausea, no vomiting. Diarrhea has resolved. The pain has gotten better; otherwise lying in bed, comfortable, in no apparent distress. PAST MEDICAL HISTORY: As above. PAST SURGICAL HISTORY: As above. MEDICATIONS: Have been reviewed. REVIEW OF SYSTEMS: All other systems have been reviewed and negative, except those positive in the HPI. PHYSICAL EXAMINATION: GENERAL: This is a pleasant elderly-appearing male, lying in bed comfortably, in no apparent distress. VITAL SIGNS: Here in the hospital, grossly remarkable. HEENT: Head: Normocephalic, atraumatic. Eyes: Pupils equally reactive to light bilaterally. No conjunctival pallor or icterus. NECK: Supple. Normal range of motion. No lymphadenopathy appreciated. LUNGS: Coarse breath sounds bilaterally. HEART: S1 and S2. Regular rate and rhythm. No murmurs appreciated. ABDOMEN: Soft and nontender. Bowel sounds are present. No rebound. No guarding. RECTAL: Deferred. EXTREMITIES: Pulses present bilaterally. SKIN: Warm, dry, and intact. NEUROLOGIC: A and O x3. LABORATORY DATA: All labs and relevant radiology have been reviewed. WBC of 4.09, hemoglobin 11.5, hematocrit 34.8, and platelet count 103,000. It shows improved. INR is 1.3. Creatinine is normal. Bilirubin is normal. AST and ALT are normal. Urinalysis shows occasional bacteria and some wbc's. ASSESSMENT AND PLAN: A 76-year-old man with what looks like sepsis unclear etiology, having no pain, not diagnostic, had cholangitis, but we will check it through an MRCP for further workup and management as indicated. Infectious Disease consult appreciated. Thank you for the consult. Huseyin Paul MD/ PhD
[2017-01-16] MEDS: Piperacillin/Tazobact 3.375 GM in Sodium Chloride 0.9% 100 ML IVPB SCH ×3 (04:30→15:36)
[2017-01-16 05:54] LABS: BASO % 0.7 % (0.0-2.0); EOS # 0.2 K/uL (0.0-0.7); EOS % 5.6 % (0.0-4.0); HEMATOCRIT 35.9 % (35.0-51.0); LYMPH # 1.1 K/uL (1.0-4.3); LYMPH % 28.1 % (20.0-40.0); MEAN CELL VOLUME 86.2 fl (80.0-94.0); MEAN CORPUSCULAR HEMOGLOBIN 28.6 pg (27.0-31.0); MEAN CORPUSCULAR HGB CONC 33.2 g/dL (33.0-37.0); MEAN PLATELET VOLUME 7.8 fl (7.2-11.7); MONO # 0.7 K/uL (0.0-0.8); MONO % 16.9 % (0.0-10.0); NEUT % 48.7 % (50.0-75.0); NRBC % 0.1 % (0.0-0.0); RED CELL DISTRIBUTION WIDTH 13.9 % (11.5-14.5)
[2017-01-16 06:17] LABS: ALKALINE PHOSPHATASE 76 U/L (38-126); ALT/SGPT 79 U/L (21-72); AST/SGOT 79 U/L (17-59); BILIRUBIN,TOTAL 0.2 mg/dl (0.2-1.3); BLOOD UREA NITROGEN 11 mg/dl (9-20); CALCIUM 8.3 mg/dL (8.4-10.2); CARBON DIOXIDE 30 mmol/L (22-30); CHLORIDE 105 mmol/L (98-107); GFR AFRICAN-AMERICAN > 60; GLUCOSE,RANDOM 78 mg/dL (75-110); POTASSIUM 3.8 MMOL/L (3.6-5.0); SODIUM 143 mmol/l (132-148); TOTAL PROTEIN 6.2 G/DL (6.3-8.2)
--- NOTE | 2017-01-16 07:32 | CP.PCM.PN ---
Subjective - Date & Time of Evaluation Date of Evaluation: 01/16/17 Time of Evaluation: 07:32 - Subjective Subjective: pt in bed no complaints except mild chest congestion w/o cough. no f/c, n/v/d. no abd pain. lft slightly elevated today, t bili wnl. mrcp w/ ?? cbd stone. per gi to do ercp as outpt on tcu. Objective - Vital Signs/Intake and Output Vital Signs (last 24 hours): Temp Pulse Resp BP Pulse Ox 98.6 F 75 20 137/83 98 01/16/17 05:42 01/16/17 05:42 01/16/17 05:42 01/16/17 05:42 01/16/17 05:42 - Medications Medications: Current Medications Acetaminophen (Tylenol 325mg Tab) 975 mg PO ONCE PRN PRN Reason: Fever >100.4 F Last Admin: 01/13/17 10:00 Dose: 975 mg Acetaminophen (Tylenol 325mg Tab) 650 mg PO Q4 PRN PRN Reason: Fever >100.4 F Last Admin: 01/14/17 03:08 Dose: 650 mg Aspirin (Ecotrin) 81 mg PO DAILY [facility] Last Admin: 01/15/17 10:10 Dose: 81 mg Atorvastatin Calcium (Lipitor) 10 mg PO HS [facility] Last Admin: 01/15/17 21:24 Dose: 10 mg Enoxaparin Sodium (Lovenox) 40 mg SC DAILY [facility] PRN Reason: Protocol Last Admin: 01/15/17 14:18 Dose: 40 mg Furosemide (Lasix) 20 mg PO DAILY [facility] Last Admin: 01/15/17 10:09 Dose: 20 mg Gabapentin (Neurontin) 600 mg PO HS [facility] Last Admin: 01/15/17 21:23 Dose: 600 mg Glipizide (Glucotrol) 10 mg PO BID [facility] Last Admin: 01/15/17 16:04 Dose: 10 mg Piperacillin Sod/Tazobactam (Sod 3.375 gm/ Sodium Chloride) 100 mls @ 100 mls/ hr IVPB Q6 [facility] PRN Reason: Protocol Last Admin: 01/16/17 04:30 Dose: 100 mls/hr Dextrose/Sodium Chloride (Dextrose 5%-0.45% Ns 500 Ml) 500 mls @ 80 mls/hr IV .Q6H15M [facility] Stop: 01/16/17 08:20 Last Admin: 01/16/17 04:30 Dose: Not Given Ibuprofen (Motrin Tab) 600 mg PO Q6 PRN PRN Reason: Fever >100.4 F Losartan Potassium (Cozaar) 50 mg PO DAILY [facility] Last Admin: 01/15/17 10:09 Dose: 50 mg Pantoprazole Sodium (Protonix Ec Tab) 20 mg PO DAILY [facility] Last Admin: 01/15/17 10:10 Dose: 20 mg - Labs Labs: 01/16/17 04:47 01/16/17 04:47 PT 15.0 Seconds (9.8-13.1) H 01/13/17 09:57 INR 1.3 (0.9-1.2) H 01/13/17 09:57 APTT 27.8 Seconds (25.6-37.1) 01/13/17 09:57 - Constitutional Appears: Well, Non-toxic, No Acute Distress - Head Exam Head Exam: ATRAUMATIC, NORMAL INSPECTION, NORMOCEPHALIC - Eye Exam Eye Exam: EOMI, Normal appearance, PERRL Pupil Exam: NORMAL ACCOMODATION, PERRL - ENT Exam ENT Exam: Mucous Membranes Moist, Normal Exam - Neck Exam Neck Exam: Full ROM, Normal Inspection. absent: Lymphadenopathy - Respiratory Exam Respiratory Exam: Clear to Ausculation Bilateral, NORMAL BREATHING PATTERN - Cardiovascular Exam Cardiovascular Exam: REGULAR RHYTHM, RRR, +S1, +S2. absent: Murmur - GI/Abdominal Exam GI & Abdominal Exam: Soft, Normal Bowel Sounds. absent: Tenderness - Extremities Exam Extremities Exam: Full ROM, Normal Capillary Refill, Normal Inspection. absent : Joint Swelling, Pedal Edema - Back Exam Back Exam: NORMAL INSPECTION - Neurological Exam Neurological Exam: Alert, Awake, CN II-XII Intact, Normal Gait, Oriented x3 - Psychiatric Exam Psychiatric exam: Normal Affect, Normal Mood - Skin Skin Exam: Dry, Intact, Normal Color, Warm Assessment and Plan (1) Fever Status: Acute (2) UTI (urinary tract infection) Status: Acute (3) DVT prophylaxis Status: Acute (4) Diabetes type 2, uncontrolled Status: Acute (5) Common bile duct dilatation Status: Acute - Assessment and Plan (Free Text) Assessment: (1) Fever Assessment and Plan: tylenol/motrin ivf f/u c/s zosyn likely urosepsis been afebrile Status: Acute (2) UTI (urinary tract infection) Assessment and Plan: zosyn f/u c/s ivf Status: Acute (3) DVT prophylaxis Assessment and Plan: scd and ae hose ambulation lovenox Status: Acute (4) Diabetes type 2, uncontrolled Assessment and Plan: fsbg, home meds insulin prn Status: Acute (5) Common bile duct dilatation Assessment and Plan: no obv stone or cholecystitis. no pain at present will monitor, gii mrcp today ?? stone in cbd, per gi outpt ercp while pt on tcu Status: Acute [id number] for tcu today
[2017-01-16] MEDS: Pantoprazole 20 mg EC Tab PO SCH (08:30)
[2017-01-16] MEDS: Enoxaparin 40 mg Syringe SC SCH (08:31)
--- NOTE | 2017-01-16 08:46 | PQF GENQUE ---
Dannie Armas [employer], Please clarify the specific condition indicated by the term 'urosepsis'. Per [employer], urosepsis is considered an imprecise term. Bacturia only without infection Infection in urinary tract (please specify infection type and site) Sepsis Other (please specify) Clinically unable to determine Unknown 2. Please clarify if condition is secondary to a device (please specify device) 3. Please specify associated organism WBC:9.3->4.0 with a left shift RBC:4.47->43 H/H:12.9/38.7->11.5/34.8 Platelet:128->103 Temp.:01/13: 101.3 on 01/14 temp max so far:101.6 Pulse:104->99->90 Respirations: 20->19->16->26-.23-.23 ER; note cc: fever , abdominal pain ROS : Constitutional: Positive for: Fever, Chills, Weakness, Malaise MDM: patient found to be febrile, workup for sepsis initiated Labs, lactate, IVF bolus, CT abd pelv and CXR, UA ordered. Tylenol given for fever. labs reviewed, revealing negative flu swab, normal WBC, but elevated lactate 2.6 Repeat lactate ordered. Clinical Impression: Sepsis, UTI (urinary tract infection), Common bile duct dilatation H and P; pt admitted for fever, ruq pain, abn UA and dialated cbd on Imagingpt-- . at present afebrile and w/o pain--k 3.3 today. wbc 4 down from 9. plt noted. Ass: (1) Fever: tylenol/motrin ivf f/u c/s zosyn Status: Acute (2) UTI (urinary tract infection) zosyn f/u c/s ivf Status:Acute (3) DVT prophylaxis: scd and ae hose ambulation Status: Acute (4) DM 2, uncontrolled Assessment and Plan: fsbg, home meds insulin prn Status: Acute (5) Common bile duct dilatation Assess: no obv stone or cholecystitis. no pain at present will monitor, gi/surgery consult prnUpdate 01/14 ID note: found to have urosepsis dehydration + Blood cultures 01/15 query: In agreement with ER MD: Clinical Impression: Sepsis, UTI (please note there is no ICD-10 code for urosepsis) ; [] Practitioner response urosepsis , bacteremia due to uti This form is a permanent part of the medical record Clarification of your documentation is requested to better reflect the severity of illness and intensity of treatment of your patient. Indicators present [] Specify: [] [] Specify: [] [] Specify: [] [] Specify: [] Location in the medical record that reflects the above clinical findings: [] Treatment Provided: [] PHYSICIAN'S RESPONSE Based on your medical judgment of the clinical indicators outlined above please clarify the following: [] Practitioner response uti-unspecified w/ sepsis [] If unable to determine, please check the box, sign and date. Present On Admission (POA) Indicator: [x] Present at the time of admission [] Not present at the time of admission [] Clinically Undetermined In responding to this query, please exercise your independent professional judgment. The fact that a question is asked does not imply that any particular answer is desired or expected. Thank you for your clarification on this documentation. If you have any questions please call. * Thank you, Miriam Huddleston RN ext. #[phone] MTDD
--- NOTE | 2017-01-16 11:29 | CP.PCM.PN ---
Subjective - Date & Time of Evaluation Date of Evaluation: 01/16/17 Time of Evaluation: 11:20 - Subjective Subjective: no overnight events Objective - Vital Signs/Intake and Output Vital Signs (last 24 hours): Temp Pulse Resp BP Pulse Ox 98.0 F 73 18 115/70 99 01/16/17 09:00 01/16/17 09:00 01/16/17 09:00 01/16/17 09:00 01/16/17 09:00 - Medications Medications: Current Medications Acetaminophen (Tylenol 325mg Tab) 975 mg PO ONCE PRN PRN Reason: Fever >100.4 F Last Admin: 01/13/17 10:00 Dose: 975 mg Acetaminophen (Tylenol 325mg Tab) 650 mg PO Q4 PRN PRN Reason: Fever >100.4 F Last Admin: 01/14/17 03:08 Dose: 650 mg Aspirin (Ecotrin) 81 mg PO DAILY [facility] Last Admin: 01/16/17 08:31 Dose: 81 mg Atorvastatin Calcium (Lipitor) 10 mg PO HS [facility] Last Admin: 01/15/17 21:24 Dose: 10 mg Enoxaparin Sodium (Lovenox) 40 mg SC DAILY [facility] PRN Reason: Protocol Last Admin: 01/16/17 08:31 Dose: 40 mg Furosemide (Lasix) 20 mg PO DAILY [facility] Last Admin: 01/16/17 08:31 Dose: 20 mg Gabapentin (Neurontin) 600 mg PO HS [facility] Last Admin: 01/15/17 21:23 Dose: 600 mg Glipizide (Glucotrol) 10 mg PO BID [facility] Last Admin: 01/16/17 08:31 Dose: 10 mg Guaifenesin/Dextromethorphan (Mucinex-Dm 600-30 Mg) 1 tab PO BID [facility] Piperacillin Sod/Tazobactam (Sod 3.375 gm/ Sodium Chloride) 100 mls @ 100 mls/ hr IVPB Q6 [facility] PRN Reason: Protocol Last Admin: 01/16/17 09:00 Dose: 100 mls/hr Ibuprofen (Motrin Tab) 600 mg PO Q6 PRN PRN Reason: Fever >100.4 F Losartan Potassium (Cozaar) 50 mg PO DAILY [facility] Last Admin: 01/16/17 08:31 Dose: 50 mg Pantoprazole Sodium (Protonix Ec Tab) 20 mg PO DAILY [facility] Last Admin: 01/16/17 08:30 Dose: 20 mg - Labs Labs: 01/16/17 04:47 01/16/17 04:47 PT 15.0 Seconds (9.8-13.1) H 01/13/17 09:57 INR 1.3 (0.9-1.2) H 01/13/17 09:57 APTT 27.8 Seconds (25.6-37.1) 01/13/17 09:57 - Head Exam Head Exam: NORMAL INSPECTION - Respiratory Exam Respiratory Exam: NORMAL BREATHING PATTERN - Cardiovascular Exam Cardiovascular Exam: REGULAR RHYTHM - GI/Abdominal Exam GI & Abdominal Exam: Soft, Normal Bowel Sounds Assessment and Plan - Assessment and Plan (Free Text) Assessment: 76 yo male with urosepsis mrcp noted normal bili and AP no pain will plan for outpatient, elective ercp once cleared
[2017-01-16] MEDS: guaiFENesin-DM 600-30 mg ER Tab PO SCH ×2 (11:30→16:04)
--- NOTE | 2017-01-16 12:58 | CP.PCM.PN ---
Subjective - Date & Time of Evaluation Date of Evaluation: 01/16/17 Time of Evaluation: 09:00 - Subjective Subjective: improving afebrile alert NAD Objective - Vital Signs/Intake and Output Vital Signs (last 24 hours): Temp Pulse Resp BP Pulse Ox 97.4 F L 77 18 109/66 97 01/16/17 11:56 01/16/17 11:56 01/16/17 11:56 01/16/17 11:56 01/16/17 11:56 - Medications Medications: Current Medications Acetaminophen (Tylenol 325mg Tab) 975 mg PO ONCE PRN PRN Reason: Fever >100.4 F Last Admin: 01/13/17 10:00 Dose: 975 mg Acetaminophen (Tylenol 325mg Tab) 650 mg PO Q4 PRN PRN Reason: Fever >100.4 F Last Admin: 01/14/17 03:08 Dose: 650 mg Aspirin (Ecotrin) 81 mg PO DAILY [facility] Last Admin: 01/16/17 08:31 Dose: 81 mg Atorvastatin Calcium (Lipitor) 10 mg PO HS [facility] Last Admin: 01/15/17 21:24 Dose: 10 mg Enoxaparin Sodium (Lovenox) 40 mg SC DAILY [facility] PRN Reason: Protocol Last Admin: 01/16/17 08:31 Dose: 40 mg Furosemide (Lasix) 20 mg PO DAILY [facility] Last Admin: 01/16/17 08:31 Dose: 20 mg Gabapentin (Neurontin) 600 mg PO HS [facility] Last Admin: 01/15/17 21:23 Dose: 600 mg Glipizide (Glucotrol) 10 mg PO BID [facility] Last Admin: 01/16/17 08:31 Dose: 10 mg Guaifenesin/Dextromethorphan (Mucinex-Dm 600-30 Mg) 1 tab PO BID [facility] Last Admin: 01/16/17 11:30 Dose: 1 tab Piperacillin Sod/Tazobactam (Sod 3.375 gm/ Sodium Chloride) 100 mls @ 100 mls/ hr IVPB Q6 [facility] PRN Reason: Protocol Last Admin: 01/16/17 09:00 Dose: 100 mls/hr Ibuprofen (Motrin Tab) 600 mg PO Q6 PRN PRN Reason: Fever >100.4 F Losartan Potassium (Cozaar) 50 mg PO DAILY [facility] Last Admin: 01/16/17 08:31 Dose: 50 mg Pantoprazole Sodium (Protonix Ec Tab) 20 mg PO DAILY [facility] Last Admin: 01/16/17 08:30 Dose: 20 mg - Labs Labs: 01/16/17 04:47 01/16/17 04:47 PT 15.0 Seconds (9.8-13.1) H 01/13/17 09:57 INR 1.3 (0.9-1.2) H 01/13/17 09:57 APTT 27.8 Seconds (25.6-37.1) 01/13/17 09:57 - Constitutional Appears: Non-toxic, Chronically Ill - Head Exam Head Exam: NORMOCEPHALIC - Eye Exam Eye Exam: PERRL - ENT Exam ENT Exam: Mucous Membranes Dry - Neck Exam Neck Exam: absent: Lymphadenopathy - Respiratory Exam Respiratory Exam: Decreased Breath Sounds - Cardiovascular Exam Cardiovascular Exam: REGULAR RHYTHM - GI/Abdominal Exam GI & Abdominal Exam: Distended - Rectal Exam Rectal Exam: Deferred - Exam Exam: NORMAL INSPECTION - Extremities Exam Extremities Exam: absent: Pedal Edema - Back Exam Back Exam: absent: CVA tenderness (L), CVA tenderness (R) - Neurological Exam Neurological Exam: Alert, Awake, Oriented x3 Neuro motor strength exam: Left Upper Extremity: 4, Right Upper Extremity: 4, Left Lower Extremity: 4, Right Lower Extremity: 4 - Psychiatric Exam Psychiatric exam: Normal Affect - Skin Skin Exam: Dry Assessment and Plan (1) Pancytopenia Status: Acute (2) Common bile duct dilatation Status: Acute (3) Diabetes type 2, uncontrolled Status: Acute (4) Fever Status: Acute (5) UTI (urinary tract infection) Status: Acute - Assessment and Plan (Free Text) Assessment: cont iv rx for 7 more days in tcu out pt ERCP
[2017-01-16 15:55] VITALS: BP 131/76; PULSE 79; RESP 20; TEMP 98.1; O2SAT 98
[2017-01-16] MEDS ORDERED: Influenza Vaccine 18yr & older 0.5 ML/45 MCG SYR IM ONE (16:00)
--- NOTE | 2017-01-16 19:09 | CP.PCM.DIS ---
Provider - Provider Date of Admission: 01/13/17 14:04 Attending physician: Shanda Weir MD Time Spent in preparation of Discharge (in minutes): 15 Diagnosis - Discharge Diagnosis (1) Fever Status: Acute (2) UTI (urinary tract infection) Status: Acute (3) DVT prophylaxis Status: Acute (4) Diabetes type 2, uncontrolled Status: Acute (5) Common bile duct dilatation Status: Acute Hospital Course - Lab Results Lab Results: Micro Results 01/13/17 09:30 Blood Blood Culture - Final Escherichia Coli 01/13/17 09:30 Blood Gram Stain - Final 01/13/17 10:00 Blood Blood Culture - Preliminary NO GROWTH AFTER 3 DAYS 01/13/17 09:57 Urine,Random Urine Culture - Final Escherichia Coli Most Recent Lab Values WBC 4.0 K/uL (4.8-10.8) L 01/16/17 04:47 RBC 4.16 Mil/uL (4.40-5.90) L 01/16/17 04:47 Hgb 11.9 g/dL (12.0-18.0) L 01/16/17 04:47 Hct 35.9 % (35.0-51.0) 01/16/17 04:47 MCV 86.2 fl (80.0-94.0) 01/16/17 04:47 MCH 28.6 pg (27.0-31.0) 01/16/17 04:47 MCHC 33.2 g/dL (33.0-37.0) 01/16/17 04:47 RDW 13.9 % (11.5-14.5) 01/16/17 04:47 Plt Count 125 K/uL (130-400) L 01/16/17 04:47 MPV 7.8 fl (7.2-11.7) 01/16/17 04:47 Neut % (Auto) 48.7 % (50.0-75.0) L 01/16/17 04:47 Lymph % (Auto) 28.1 % (20.0-40.0) 01/16/17 04:47 [place] % (Auto) 16.9 % (0.0-10.0) H 01/16/17 04:47 Eos % (Auto) 5.6 % (0.0-4.0) H 01/16/17 04:47 Baso % (Auto) 0.7 % (0.0-2.0) 01/16/17 04:47 Neut # 2.0 K/uL (1.8-7.0) 01/16/17 04:47 Lymph # 1.1 K/uL (1.0-4.3) 01/16/17 04:47 [place] # 0.7 K/uL (0.0-0.8) 01/16/17 04:47 Eos # 0.2 K/uL (0.0-0.7) 01/16/17 04:47 Baso # 0.0 K/uL (0.0-0.2) 01/16/17 04:47 Neutrophils % (Manual) 92 % (42-75) H 01/13/17 09:57 Band Neutrophils % 3 % (0-2) H 01/13/17 09:57 Lymphocytes % (Manual) 3 % (20-50) L 01/13/17 09:57 Monocytes % (Manual) 2 % (0-10) 01/13/17 09:57 Platelet Estimate Slightly decreased (NORMAL) L 01/13/17 09:57 Plt Clumps, EDTA Present 01/13/17 09:57 Giant Platelets Present 01/13/17 09:57 PT 15.0 Seconds (9.8-13.1) H 01/13/17 09:57 INR 1.3 (0.9-1.2) H 01/13/17 09:57 APTT 27.8 Seconds (25.6-37.1) 01/13/17 09:57 pO2 34 mm/Hg (30-55) 01/13/17 13:30 VBG pH 7.41 (7.32-7.43) 01/13/17 13:30 VBG pCO2 38 mmHg (40-60) L 01/13/17 13:30 VBG HCO3 23.8 mmol/L 01/13/17 13:30 VBG Total CO2 25.3 mmol/L (22-28) 01/13/17 13:30 VBG O2 Sat (Calc) 78.2 % (40-65) H 01/13/17 13:30 VBG Base Excess -0.3 mmol/L (0.0-2.0) L 01/13/17 13:30 VBG Potassium 3.3 mmol/L (3.6-5.2) L 01/13/17 13:30 A-a O2 Difference 68.0 mm/Hg 01/13/17 13:30 Sodium 134.0 mmol/L (132-148) 01/13/17 13:30 Chloride 103.0 mmol/L (98-107) 01/13/17 13:30 Glucose 144 mg/dL (75-110) H 01/13/17 13:30 Lactate 1.4 mmol/L (0.7-2.1) 01/13/17 13:30 FiO2 21.0 % 01/13/17 13:30 Crit Value Called To Md mayra snell 01/13/17 13:30 Crit Value Called By 15 01/13/17 13:30 Crit Value Read Back Y 01/13/17 13:30 Blood Gas Notified Time 1334 01/13/17 13:30 Sodium 143 mmol/l (132-148) 01/16/17 04:47 Potassium 3.8 MMOL/L (3.6-5.0) 01/16/17 04:47 Chloride 105 mmol/L (98-107) 01/16/17 04:47 Carbon Dioxide 30 mmol/L (22-30) 01/16/17 04:47 Anion Gap 12 (10-20) 01/16/17 04:47 BUN 11 mg/dl (9-20) 01/16/17 04:47 Creatinine 1.2 mg/dl (0.8-1.5) 01/16/17 04:47 Est GFR ( Amer) > 60 01/16/17 04:47 Est GFR (Non-Af Amer) 59 01/16/17 04:47 POC Glucose (mg/dL) 123 mg/dL (65-110) H 01/16/17 16:16 Random Glucose 78 mg/dL (75-110) 01/16/17 04:47 Calcium 8.3 mg/dL (8.4-10.2) L 01/16/17 04:47 Phosphorus 2.2 mg/dl (2.5-4.5) L 01/13/17 09:57 Magnesium 1.7 MG/DL (1.6-2.3) 01/13/17 09:57 Total Bilirubin 0.2 mg/dl (0.2-1.3) 01/16/17 04:47 AST 79 U/L (17-59) H D 01/16/17 04:47 ALT 79 U/L (21-72) H D 01/16/17 04:47 Alkaline Phosphatase 76 U/L (38-126) 01/16/17 04:47 Total Protein 6.2 G/DL (6.3-8.2) L 01/16/17 04:47 Albumin 3.1 g/dL (3.5-5.0) L 01/16/17 04:47 Globulin 3.1 gm/dL (2.2-3.9) 01/16/17 04:47 Albumin/Globulin Ratio 1.0 (1.0-2.1) 01/16/17 04:47 Lipase 26 U/L (23-300) 01/13/17 09:30 Prostate Specific Ag 2.65 ng/ML (0.00-4.0) 01/14/17 13:58 Venous Blood Potassium 3.3 mmol/L (3.6-5.2) L 01/13/17 13:30 Urine Color Yellow (YELLOW) 01/13/17 09:57 Urine Clarity Slighty-cloudy (Clear) 01/13/17 09:57 Urine pH 5.0 (5.0-8.0) 01/13/17 09:57 Ur Specific [place] 1.025 (1.003-1.030) 01/13/17 09:57 Urine Protein 100 mg/dL (NEGATIVE) 01/13/17 09:57 Urine Glucose (UA) Neg mg/dL (Normal) 01/13/17 09:57 Urine Ketones Negative mg/dL (NEGATIVE) 01/13/17 09:57 Urine Blood Large (NEGATIVE) 01/13/17 09:57 Urine Nitrate Negative (NEGATIVE) 01/13/17 09:57 Urine Bilirubin Negative (NEGATIVE) 01/13/17 09:57 Urine Urobilinogen 0.2-1.0 mg/dL (0.2-1.0) 01/13/17 09:57 Ur Leukocyte Esterase Small [place]/uL (Negative) 01/13/17 09:57 Urine RBC (Auto) 6 /hpf (0-3) H 01/13/17 09:57 Urine Microscopic WBC 24 /hpf (0-5) H 01/13/17 09:57 Urine Bacteria Occ (<OCC) H 01/13/17 09:57 Influenza Typ A,B (EIA) Negative for flu a/b (NEGATIVE) 01/13/17 09:57 Discharge Exam - Head Exam Head Exam: NORMOCEPHALIC Discharge Plan - Discharge Medications Prescriptions: cefTRIAXone 1 gm [Rocephin 1 gram IVPB] 1 gm IVPB DAILY #7 bag Guaifenesin/Dextromethorphan [Mucinex Dm ER 1,200-60 mg Tab] 1 each PO Q12 #20 tab.er.12h - Follow Up Plan Condition: GOOD Disposition: TRANSF TO SNF Instructions: Urinary Tract Infection in Women (DC), Urinary Tract Infection in Men (DC), Sepsis (DC), Sepsis (GEN), Dysuria (GEN) Additional Instructions: final dx-uti, sepsis, dialated cbd for iv anbx 1 wk on tcu meds per med rec, f/u w/ gi/ID
== END 2017-01-16 16:52 | DRG 872 ==
LOC: H.ER 08:46 → H.ERHOLD 14:04 → H.TEL 17:21
PROVIDERS: ADMIT Family Medicine; ATTEND Family Medicine
PROC: 3E0234Z Introduction of Serum, Toxoid and Vaccine into Muscle, Percutaneous Approach (ICD-10-PCS; principal; 2017-01-16)
DX: A41.9 Sepsis, unspecified organism (principal); N39.0 Urinary tract infection, site not specified; D61.818 Other pancytopenia; E11.40 Type 2 diabetes mellitus with diabetic neuropathy, unspecified; E11.65 Type 2 diabetes mellitus with hyperglycemia; B96.20 Unspecified Escherichia coli [E. coli] as the cause of diseases classified elsewhere; K80.50 Calculus of bile duct without cholangitis or cholecystitis without obstruction; K83.8 Other specified diseases of biliary tract; E86.0 Dehydration; I10 Essential (primary) hypertension; K57.30 Diverticulosis of large intestine without perforation or abscess without bleeding; E78.00 Pure hypercholesterolemia, unspecified; G89.29 Other chronic pain; Z23 Encounter for immunization; Z79.82 Long term (current) use of aspirin

== ENCOUNTER 2017-01-16 11:53 | Inpatient (IN) | payer OTHER ==
[2017-01-16 17:08] VITALS: BMI 36.3
[2017-01-16 17:11] VITALS: RESP 20
[2017-01-16] MEDS: guaiFENesin-DM 600-30 mg ER Tab PO SCH (21:15)
[2017-01-17] MEDS: Albuterol-Ipratrop 3 mg / 0.5 (3 ml) UD INH PRN ×3 (05:39→20:47)
[2017-01-17] MEDS: guaiFENesin-DM 600-30 mg ER Tab PO SCH ×2 (08:34→21:51)
[2017-01-17] MEDS: Enoxaparin 40 mg Syringe SC SCH (08:34)
[2017-01-17] MEDS: Pantoprazole 20 mg EC Tab PO SCH (08:35)
--- NOTE | 2017-01-17 08:57 | CP.PCM.HP ---
History of Present Illness - History of Present Illness History of Present Illness: pt still w/ cough/congestion, relief w/ duoneb. no f/c, n/v/d. for iv anbx. ercp to be scheduled buy gi. no abd pain. no cough at present Present on Admission - Present on Admission Any Indicators Present on Admission: No Review of Systems - Respiratory Respiratory: As Per HPI, Cough, Chest Congestion Past Patient History - Past Medical History & Family History Past Medical History?: Yes - Past Social History Smoking Status: Former Smoker - CARDIAC Hx Hypercholesterolemia: Yes Hx Hypertension: Yes - PULMONARY Hx Respiratory Disorders: No - NEUROLOGICAL Hx Neurological Disorder: No - HEENT Hx HEENT Problems: No - RENAL Hx Chronic Kidney Disease: No - ENDOCRINE/METABOLIC Hx Endocrine Disorders: Yes Hx Diabetes Mellitus Type 2: Yes - HEMATOLOGICAL/ONCOLOGICAL Hx Blood Disorders: No - INTEGUMENTARY Hx Dermatological Problems: No - MUSCULOSKELETAL/RHEUMATOLOGICAL Hx Musculoskeletal Disorders: No Hx Falls: No - GASTROINTESTINAL Hx Gastrointestinal Disorders: No - GENITOURINARY/GYNECOLOGICAL Hx Genitourinary Disorders: No - PSYCHIATRIC Hx Psychophysiologic Disorder: No Hx Substance Use: No - SURGICAL HISTORY Hx Surgeries: Yes Other/Comment: Hemorrhoidectomy - ANESTHESIA Hx Anesthesia: Yes Hx Anesthesia Reactions: No Hx Malignant Hyperthermia: No Meds Allergies/Adverse Reactions: Allergies Allergy/AdvReac Type Severity Reaction Status Date / Time No Known Allergies Allergy Verified 01/16/17 17:06 Physical Exam - Constitutional Appears: Well, Non-toxic, No Acute Distress - Head Exam Head Exam: ATRAUMATIC, NORMAL INSPECTION, NORMOCEPHALIC - Eye Exam Eye Exam: EOMI, Normal appearance, PERRL Pupil Exam: NORMAL ACCOMODATION, PERRL - ENT Exam ENT Exam: Mucous Membranes Moist, Normal Exam - Neck Exam Neck exam: Positive for: Normal Inspection - Respiratory Exam Respiratory Exam: Clear to Auscultation Bilateral, NORMAL BREATHING PATTERN - Cardiovascular Exam Cardiovascular Exam: REGULAR RHYTHM, RRR, +S1, +S2 - GI/Abdominal Exam GI & Abdominal Exam: Normal Bowel Sounds, Soft. absent: Tenderness - Extremities Exam Extremities exam: Positive for: full ROM, normal capillary refill, normal inspection, pedal pulses present - Back Exam Back exam: NORMAL INSPECTION - Neurological Exam Neurological exam: Alert, CN II-XII Intact, Normal Gait, Oriented x3, Reflexes Normal - Psychiatric Exam Psychiatric exam: Normal Affect, Normal Mood - Skin Skin Exam: Dry, Intact, Normal Color, Warm Results - Vital Signs Recent Vital Signs: Last Vital Signs Temp 97.9 F 01/16/17 19:43 Pulse 81 01/17/17 08:32 Resp 20 01/16/17 19:43 BP 119/74 01/17/17 08:33 Pulse Ox 97 01/16/17 19:43 - Labs Labs: Laboratory Results - last 24 hr 01/16/17 01/16/17 01/17/17 20:17 23:35 00:41 POC Glucose (mg/dL) 100 59 L 117 H 01/17/17 05:15 POC Glucose (mg/dL) 83 Assessment & Plan (1) Chest congestion Assessment and Plan: mucinex, duoneb if persists will repeat cxr Status: Acute (2) Common bile duct dilatation Assessment and Plan: mrcp noted gi ercp as per gi Status: Acute (3) DVT prophylaxis Assessment and Plan: scd nad ae hose lovenox Status: Acute (4) Diabetes type 2, uncontrolled Status: Acute (5) Fever Status: Acute (6) Sepsis Assessment and Plan: r/t uti ecoli isolated in blood c/s id rocephin x 1 wk Status: Acute (7) UTI (urinary tract infection) Assessment and Plan: rocephin ecoli in c/s no further complaints Status: Acute Decision To Admit - Pt Status Changed To: Hospital Disposition Of: Inpatient - Admit Certification Admit to Inpatient:: After my assessment, the patient will require hospitalization for at least two midnights. This is because of the severity of symptoms shown, intensity of services needed, and/or the medical risk in this patient being treated as an outpatient. - . Bed Request Type: Transitional Care Unit Admitting Physician: Shanda Weir
[2017-01-17] MEDS ORDERED: cefTRIAXone IV 1 gm in Dextros 50 ML BAG IVPB SCH (09:00)
[2017-01-17] MEDS: cefTRIAXone IV 1 gm in Dextros 50 ML IVPB SCH (13:18)
[2017-01-18] MEDS: Enoxaparin 40 mg Syringe SC SCH (10:01)
[2017-01-18] MEDS: guaiFENesin-DM 600-30 mg ER Tab PO SCH ×2 (10:02→21:21)
[2017-01-18] MEDS: Pantoprazole 20 mg EC Tab PO SCH (10:03)
[2017-01-18] MEDS: cefTRIAXone IV 1 gm in Dextros 50 ML IVPB SCH (10:05)
--- NOTE | 2017-01-19 08:47 | CP.PCM.PN ---
Subjective - Date & Time of Evaluation Date of Evaluation: 01/19/17 Time of Evaluation: 08:33 - Subjective Subjective: pt denies complaints except cough/congestion. nof /c, n/v/d. chronic intermittent left knee pain-tylenol/motrin is ordered. Objective - Vital Signs/Intake and Output Vital Signs (last 24 hours): Temp Pulse Resp BP Pulse Ox 98.1 F 74 20 101/58 L 98 01/19/17 08:03 01/19/17 08:03 01/19/17 08:03 01/19/17 08:03 01/19/17 08:03 - Medications Medications: Current Medications Acetaminophen (Tylenol 325mg Tab) 650 mg PO Q4 PRN PRN Reason: Fever >100.4 F Albuterol/Ipratropium (Duoneb 3 Mg/0.5 Mg (3 Ml) Ud) 3 ml INH RQ6 PRN PRN Reason: Shortness of Breath Last Admin: 01/17/17 20:47 Dose: 3 ml Aspirin (Ecotrin) 81 mg PO DAILY [facility] Last Admin: 01/18/17 10:04 Dose: 81 mg Atorvastatin Calcium (Lipitor) 10 mg PO HS [facility] Last Admin: 01/18/17 21:21 Dose: 10 mg Enoxaparin Sodium (Lovenox) 40 mg SC DAILY [facility] PRN Reason: Protocol Last Admin: 01/18/17 10:01 Dose: 40 mg Furosemide (Lasix) 20 mg PO DAILY [facility] Last Admin: 01/18/17 10:03 Dose: 20 mg Gabapentin (Neurontin) 600 mg PO HS [facility] Last Admin: 01/18/17 21:21 Dose: 600 mg Glipizide (Glucotrol) 10 mg PO BID [facility] Last Admin: 01/18/17 17:16 Dose: 10 mg Guaifenesin/Dextromethorphan (Mucinex-Dm 600-30 Mg) 1 tab PO Q12 [facility] Last Admin: 01/18/17 21:21 Dose: 1 tab Ceftriaxone Sodium (Rocephin Iv 1 Gm Duplex) 50 mls @ 50 mls/hr IVPB DAILY [facility] Last Admin: 01/18/17 10:05 Dose: 50 mls/hr Ibuprofen (Motrin Tab) 600 mg PO Q6 PRN PRN Reason: Fever >100.4 F Losartan Potassium (Cozaar) 50 mg PO DAILY [facility] Last Admin: 01/18/17 10:02 Dose: 50 mg Pantoprazole Sodium (Protonix Ec Tab) 20 mg PO DAILY [facility] Last Admin: 01/18/17 10:03 Dose: 20 mg - Constitutional Appears: Well, Non-toxic, No Acute Distress - Head Exam Head Exam: ATRAUMATIC, NORMAL INSPECTION, NORMOCEPHALIC - Eye Exam Eye Exam: EOMI, Normal appearance, PERRL Pupil Exam: NORMAL ACCOMODATION, PERRL - ENT Exam ENT Exam: Mucous Membranes Moist, Normal Exam - Neck Exam Neck Exam: Full ROM, Normal Inspection. absent: Lymphadenopathy - Respiratory Exam Respiratory Exam: Clear to Ausculation Bilateral, NORMAL BREATHING PATTERN - Cardiovascular Exam Cardiovascular Exam: REGULAR RHYTHM, RRR, +S1, +S2. absent: Murmur - GI/Abdominal Exam GI & Abdominal Exam: Soft, Normal Bowel Sounds. absent: Tenderness - Extremities Exam Extremities Exam: Full ROM, Normal Capillary Refill, Normal Inspection. absent : Joint Swelling, Pedal Edema - Back Exam Back Exam: NORMAL INSPECTION - Neurological Exam Neurological Exam: Alert, Awake, CN II-XII Intact, Normal Gait, Oriented x3 - Psychiatric Exam Psychiatric exam: Normal Affect, Normal Mood - Skin Skin Exam: Dry, Intact, Normal Color, Warm Assessment and Plan (1) Chest congestion Status: Acute (2) Common bile duct dilatation Status: Acute (3) DVT prophylaxis Status: Acute (4) Diabetes type 2, uncontrolled Status: Acute (5) Fever Status: Acute (6) Sepsis Status: Acute (7) UTI (urinary tract infection) Status: Acute - Assessment and Plan (Free Text) Assessment: (1) Chest congestion Assessment and Plan: mucinex, duoneb if persists will repeat cxrcxr today Status: Acute (2) Common bile duct dilatation Assessment and Plan: mrcp noted gi ercp as per gi Status: Acute (3) DVT prophylaxis Assessment and Plan: scd nad ae hose lovenox Status: Acute (4) Diabetes type 2, uncontrolled Status: Acute (5) Fever Status: Acute (6) Sepsis Assessment and Plan: r/t uti ecoli isolated in blood c/s id rocephin x 1 wk Status: Acute (7) UTI (urinary tract infection) Assessment and Plan: rocephin ecoli in c/s no further complaints Status: Acute
[2017-01-19] MEDS: guaiFENesin-DM 600-30 mg ER Tab PO SCH (09:29)
[2017-01-19] MEDS: Enoxaparin 40 mg Syringe SC SCH (09:31)
[2017-01-19] MEDS: Pantoprazole 20 mg EC Tab PO SCH (09:31)
[2017-01-19] MEDS: Albuterol-Ipratrop 3 mg / 0.5 (3 ml) UD INH PRN (09:42)
[2017-01-19] MEDS: cefTRIAXone IV 1 gm in Dextros 50 ML IVPB SCH (09:46)
--- NOTE | 2017-01-19 12:37 | RAD ---
HISTORY: cough/congestion COMPARISON: 01/13/2017 TECHNIQUE: Chest PA and lateral FINDINGS: LUNGS: Hyperinflation, manifestations of COPD. No active pulmonary disease. PLEURA: No significant pleural effusion identified. No pneumothorax apparent. CARDIOVASCULAR: Normal. OSSEOUS STRUCTURES: No significant abnormalities. Multilevel degenerative changes, non marginal, marginal osteophyte formation at multiple levels. VISUALIZED UPPER ABDOMEN: Normal. OTHER FINDINGS: None. IMPRESSION: No active disease. No significant interval change compared to the prior examination(s).
[2017-01-20] MEDS: guaiFENesin-DM 600-30 mg ER Tab PO SCH ×3 (00:23→21:29)
[2017-01-20] MEDS: Enoxaparin 40 mg Syringe SC SCH (09:23)
[2017-01-20] MEDS: Pantoprazole 20 mg EC Tab PO SCH (09:23)
[2017-01-20] MEDS: cefTRIAXone IV 1 gm in Dextros 50 ML IVPB SCH (09:25)
[2017-01-20] MEDS: Albuterol-Ipratrop 3 mg / 0.5 (3 ml) UD INH PRN (09:38)
--- NOTE | 2017-01-20 14:17 | RAD ---
PROCEDURE: Left Hip X-ray Radiographs. HISTORY: pain to left hip COMPARISON: Correlation with CT scan of the abdomen pelvis dated 01/13/2017. FINDINGS: BONES: Normal. No fracture. JOINTS: Moderate right and severe left hip narrowing with subchondral sclerosis, cystic change and osteophytosis. SOFT TISSUES: Normal. OTHER FINDINGS: None. 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 No acute fracture.
--- NOTE | 2017-01-21 08:02 | CP.PCM.PN ---
Subjective - Date & Time of Evaluation Date of Evaluation: 01/21/17 Time of Evaluation: 08:00 - Subjective Subjective: denies complaints at present. no cough/congestion. no hip or knee pain. hip xr w / arthritis. pt also states that he was told by primary to stop glipezide. repeat bc, urine c/s nordered for today Objective - Vital Signs/Intake and Output Vital Signs (last 24 hours): Temp Pulse Resp BP Pulse Ox 97.1 F L 78 20 102/51 L 97 01/20/17 19:38 01/20/17 19:38 01/20/17 19:38 01/20/17 19:38 01/20/17 19:38 - Medications Medications: Current Medications Acetaminophen (Tylenol 325mg Tab) 650 mg PO Q4 PRN PRN Reason: Fever >100.4 F Albuterol/Ipratropium (Duoneb 3 Mg/0.5 Mg (3 Ml) Ud) 3 ml INH RQ6 PRN PRN Reason: Shortness of Breath Last Admin: 01/20/17 09:38 Dose: 3 ml Aspirin (Ecotrin) 81 mg PO DAILY [facility] Last Admin: 01/20/17 09:23 Dose: 81 mg Atorvastatin Calcium (Lipitor) 10 mg PO HS [facility] Last Admin: 01/20/17 21:29 Dose: 10 mg Enoxaparin Sodium (Lovenox) 40 mg SC DAILY [facility] PRN Reason: Protocol Last Admin: 01/20/17 09:23 Dose: 40 mg Furosemide (Lasix) 20 mg PO DAILY [facility] Last Admin: 01/20/17 09:22 Dose: 20 mg Gabapentin (Neurontin) 600 mg PO HS [facility] Last Admin: 01/20/17 21:29 Dose: 600 mg Guaifenesin/Dextromethorphan (Mucinex-Dm 600-30 Mg) 1 tab PO Q12 [facility] Last Admin: 01/20/17 21:29 Dose: 1 tab Ceftriaxone Sodium (Rocephin Iv 1 Gm Duplex) 50 mls @ 50 mls/hr IVPB DAILY [facility] Last Admin: 01/20/17 09:25 Dose: 50 mls/hr Ibuprofen (Motrin Tab) 600 mg PO Q6 PRN PRN Reason: Fever >100.4 F Losartan Potassium (Cozaar) 50 mg PO DAILY [facility] Last Admin: 11/21/17 09:23 Dose: 50 mg Pantoprazole Sodium (Protonix Ec Tab) 20 mg PO DAILY [facility] Last Admin: 01/20/17 09:23 Dose: 20 mg Sitagliptin Phosphate (Januvia) 50 mg PO DAILY [facility] - Constitutional Appears: Well, Non-toxic, No Acute Distress - Head Exam Head Exam: ATRAUMATIC, NORMAL INSPECTION, NORMOCEPHALIC - Eye Exam Eye Exam: EOMI, Normal appearance, PERRL Pupil Exam: NORMAL ACCOMODATION, PERRL - ENT Exam ENT Exam: Mucous Membranes Moist, Normal Exam - Neck Exam Neck Exam: Full ROM, Normal Inspection. absent: Lymphadenopathy - Respiratory Exam Respiratory Exam: Clear to Ausculation Bilateral, NORMAL BREATHING PATTERN - Cardiovascular Exam Cardiovascular Exam: REGULAR RHYTHM, RRR, +S1, +S2. absent: Murmur - GI/Abdominal Exam GI & Abdominal Exam: Soft, Normal Bowel Sounds. absent: Tenderness - Extremities Exam Extremities Exam: Full ROM, Normal Capillary Refill, Normal Inspection. absent : Joint Swelling, Pedal Edema - Back Exam Back Exam: NORMAL INSPECTION - Neurological Exam Neurological Exam: Alert, Awake, CN II-XII Intact, Normal Gait, Oriented x3 - Psychiatric Exam Psychiatric exam: Normal Affect, Normal Mood - Skin Skin Exam: Dry, Intact, Normal Color, Warm Assessment and Plan (1) Chest congestion Status: Acute (2) Common bile duct dilatation Status: Acute (3) DVT prophylaxis Status: Acute (4) Diabetes type 2, uncontrolled Status: Acute (5) Fever Status: Acute (6) Sepsis Status: Acute (7) UTI (urinary tract infection) Status: Acute - Assessment and Plan (Free Text) Assessment: (1) Chest congestion Assessment and Plan: mucinex, duoneb cxr wnl Status: Acute (2) Common bile duct dilatation Assessment and Plan: mrcp noted gi ercp as per gi Status: Acute (3) DVT prophylaxis Assessment and Plan: scd nad ae hose lovenox Status: Acute (4) Diabetes type 2, uncontrolled change glipezide for januvia, fsbg, diet Status: Acute (5) Fever Status: Acute (6) Sepsis Assessment and Plan: r/t uti ecoli isolated in blood c/s id rocephin x 1 wk repeat c/s today Status: Acute (7) UTI (urinary tract infection) Assessment and Plan: rocephin ecoli in c/s no further complaints Status: Acute arthiritis-pt, pain control
[2017-01-21 08:07] LABS: BASO % 0.5 % (0.0-2.0); EOS # 0.3 K/uL (0.0-0.7); HEMATOCRIT 40.3 % (35.0-51.0); LYMPH # 2.6 K/uL (1.0-4.3); LYMPH % 40.1 % (20.0-40.0); MEAN CELL VOLUME 85.6 fl (80.0-94.0); MEAN CORPUSCULAR HEMOGLOBIN 28.6 pg (27.0-31.0); MEAN CORPUSCULAR HGB CONC 33.5 g/dL (33.0-37.0); MEAN PLATELET VOLUME 7.8 fl (7.2-11.7); MONO # 0.8 K/uL (0.0-0.8); MONO % 12.4 % (0.0-10.0); NEUT # 2.8 K/uL (1.8-7.0); NRBC % 0.2 % (0.0-0.0); RED CELL DISTRIBUTION WIDTH 14.3 % (11.5-14.5); WHITE BLOOD COUNT 6.4 K/uL (4.8-10.8)
[2017-01-21 08:30] LABS: ALB/GLOB RATIO 1.2 (1.0-2.1); ALKALINE PHOSPHATASE 88 U/L (38-126); ALT/SGPT 92 U/L (21-72); AST/SGOT 51 U/L (17-59); BILIRUBIN,TOTAL 0.4 mg/dl (0.2-1.3); BLOOD UREA NITROGEN 22 mg/dl (9-20); CALCIUM 9.3 mg/dL (8.4-10.2); CARBON DIOXIDE 30 mmol/L (22-30); CHLORIDE 102 mmol/L (98-107); GFR AFRICAN-AMERICAN > 60; GLUCOSE,RANDOM 93 mg/dL (75-110); POTASSIUM 4.6 MMOL/L (3.6-5.0); SODIUM 142 mmol/l (132-148); TOTAL PROTEIN 7.3 G/DL (6.3-8.2)
[2017-01-21] MEDS: Pantoprazole 20 mg EC Tab PO SCH (08:56)
[2017-01-21] MEDS: guaiFENesin-DM 600-30 mg ER Tab PO SCH ×2 (08:56→21:42)
[2017-01-21] MEDS: cefTRIAXone IV 1 gm in Dextros 50 ML IVPB SCH (08:58)
[2017-01-21] MEDS: Enoxaparin 40 mg Syringe SC SCH (08:58)
[2017-01-21] MEDS: Albuterol-Ipratrop 3 mg / 0.5 (3 ml) UD INH PRN (09:13)
[2017-01-21 14:19] LABS: URINE BILIRUBIN NEGATIVE (NEGATIVE); URINE BLOOD SMALL (NEGATIVE); URINE COLOR YELLOW (YELLOW); URINE GLUCOSE (UA) NEG (Normal); URINE KETONE NEGATIVE (NEGATIVE); URINE LEUKOCYTE ESTERASE NEG Leu/uL (Negative); URINE PROTEIN NEGATIVE (NEGATIVE); URINE UROBILINOGEN 0.2-1.0 mg/dL (0.2-1.0)
[2017-01-21 14:21] LABS: RBC URINE 6 /hpf (0-3); WBC URINE 3 /hpf (0-5)
[2017-01-22] MEDS: guaiFENesin-DM 600-30 mg ER Tab PO SCH ×2 (08:58→22:00)
[2017-01-22] MEDS: Pantoprazole 20 mg EC Tab PO SCH (08:59)
[2017-01-22] MEDS: Enoxaparin 40 mg Syringe SC SCH (08:59)
[2017-01-22] MEDS: cefTRIAXone IV 1 gm in Dextros 50 ML IVPB SCH (09:16)
[2017-01-22] MEDS: Albuterol-Ipratrop 3 mg / 0.5 (3 ml) UD INH PRN ×2 (09:23→22:07)
--- NOTE | 2017-01-23 07:17 | CP.PCM.DIS ---
Provider - Provider Date of Admission: 01/16/17 17:08 Attending physician: Shanda Weir MD Time Spent in preparation of Discharge (in minutes): 15 Diagnosis - Discharge Diagnosis (1) Chest congestion Status: Acute (2) Common bile duct dilatation Status: Acute (3) DVT prophylaxis Status: Acute (4) Diabetes type 2, uncontrolled Status: Acute (5) Fever Status: Acute (6) Sepsis Status: Acute (7) UTI (urinary tract infection) Status: Acute Hospital Course - Lab Results Lab Results: Micro Results 01/21/17 07:56 Blood Blood Culture - Preliminary NO GROWTH AFTER 24 HOURS Most Recent Lab Values WBC 6.4 K/uL (4.8-10.8) D 01/21/17 07:56 RBC 4.70 Mil/uL (4.40-5.90) 01/21/17 07:56 Hgb 13.5 g/dL (12.0-18.0) 01/21/17 07:56 Hct 40.3 % (35.0-51.0) 01/21/17 07:56 MCV 85.6 fl (80.0-94.0) 01/21/17 07:56 MCH 28.6 pg (27.0-31.0) 01/21/17 07:56 MCHC 33.5 g/dL (33.0-37.0) 01/21/17 07:56 RDW 14.3 % (11.5-14.5) 01/21/17 07:56 Plt Count 241 K/uL (130-400) D 01/21/17 07:56 MPV 7.8 fl (7.2-11.7) 01/21/17 07:56 Neut % (Auto) 43.0 % (50.0-75.0) L 01/21/17 07:56 Lymph % (Auto) 40.1 % (20.0-40.0) H 01/21/17 07:56 Garza % (Auto) 12.4 % (0.0-10.0) H 01/21/17 07:56 Eos % (Auto) 4.0 % (0.0-4.0) 01/21/17 07:56 Baso % (Auto) 0.5 % (0.0-2.0) 01/21/17 07:56 Neut # 2.8 K/uL (1.8-7.0) 01/21/17 07:56 Lymph # 2.6 K/uL (1.0-4.3) 01/21/17 07:56 Garza # 0.8 K/uL (0.0-0.8) 01/21/17 07:56 Eos # 0.3 K/uL (0.0-0.7) 01/21/17 07:56 Baso # 0.0 K/uL (0.0-0.2) 01/21/17 07:56 Sodium 142 mmol/l (132-148) 01/21/17 07:56 Potassium 4.6 MMOL/L (3.6-5.0) 01/21/17 07:56 Chloride 102 mmol/L (98-107) 01/21/17 07:56 Carbon Dioxide 30 mmol/L (22-30) 01/21/17 07:56 Anion Gap 15 (10-20) 01/21/17 07:56 BUN 22 mg/dl (9-20) H 01/21/17 07:56 Creatinine 1.0 mg/dl (0.8-1.5) 01/21/17 07:56 Est GFR ( Amer) > 60 01/21/17 07:56 Est GFR (Non-Af Amer) > 60 01/21/17 07:56 POC Glucose (mg/dL) 106 mg/dL (65-110) 01/23/17 06:03 Random Glucose 93 mg/dL (75-110) 01/21/17 07:56 Calcium 9.3 mg/dL (8.4-10.2) 01/21/17 07:56 Total Bilirubin 0.4 mg/dl (0.2-1.3) 01/21/17 07:56 AST 51 U/L (17-59) 01/21/17 07:56 ALT 92 U/L (21-72) H 01/21/17 07:56 Alkaline Phosphatase 88 U/L (38-126) 01/21/17 07:56 Total Protein 7.3 G/DL (6.3-8.2) 01/21/17 07:56 Albumin 3.9 g/dL (3.5-5.0) 01/21/17 07:56 Globulin 3.4 gm/dL (2.2-3.9) 01/21/17 07:56 Albumin/Globulin Ratio 1.2 (1.0-2.1) 01/21/17 07:56 Urine Color Yellow (YELLOW) 01/21/17 14:00 Urine Clarity Clear (Clear) 01/21/17 14:00 Urine pH 6.0 (5.0-8.0) 01/21/17 14:00 Ur Specific [place] 1.015 (1.003-1.030) 01/21/17 14:00 Urine Protein Negative mg/dL (NEGATIVE) 01/21/17 14:00 Urine Glucose (UA) Neg mg/dL (Normal) 01/21/17 14:00 Urine Ketones Negative mg/dL (NEGATIVE) 01/21/17 14:00 Urine Blood Small (NEGATIVE) 01/21/17 14:00 Urine Nitrate Negative (NEGATIVE) 01/21/17 14:00 Urine Bilirubin Negative (NEGATIVE) 01/21/17 14:00 Urine Urobilinogen 0.2-1.0 mg/dL (0.2-1.0) 01/21/17 14:00 Ur Leukocyte Esterase Neg Jabari/uL (Negative) 01/21/17 14:00 Urine RBC (Auto) 6 /hpf (0-3) H 01/21/17 14:00 Urine Microscopic WBC 3 /hpf (0-5) 01/21/17 14:00 Discharge Exam - Head Exam Head Exam: ATRAUMATIC, NORMAL INSPECTION, NORMOCEPHALIC - Eye Exam Eye Exam: EOMI, Normal appearance, PERRL Pupil Exam: NORMAL ACCOMODATION, PERRL - Respiratory Exam Respiratory Exam: Clear to PA & Lateral, NORMAL BREATHING PATTERN, UNREMARKABLE - Cardiovascular Exam Cardiovascular Exam: REGULAR RHYTHM, RRR, +S1, +S2 - GI/Abdominal Exam GI & Abdominal Exam: Normal Bowel Sounds, Soft, Unremarkable - Exam Speculum exam: NORMAL SPECULUM EXAM - Extremities Exam Extremities exam: full ROM, normal capillary refill, normal inspection, pedal pulses present - Neurological Exam Neurological exam: Alert, CN II-XII Intact, Normal Gait, Oriented x3, Reflexes Normal - Psychiatric Exam Psychiatric exam: Normal Affect, Normal Mood - Skin Skin Exam: Dry, Intact, Normal Color, Warm Discharge Plan - Discharge Medications Prescriptions: SITagliptin [Januvia] 50 mg PO DAILY #30 tab - Follow Up Plan Condition: GOOD Disposition: HOME/ ROUTINE Additional Instructions: final dx-uti, bacteremia, sepsis. doing well, no complaints. glucose noted-controlled off glipizide on maruvia. deniesf/c, n/v/d
[2017-01-23 08:24] VITALS: BP 122/64; PULSE 80; TEMP 97.3; O2SAT 99
[2017-01-23] MEDS: guaiFENesin-DM 600-30 mg ER Tab PO SCH (09:38)
[2017-01-23] MEDS: Pantoprazole 20 mg EC Tab PO SCH (09:39)
[2017-01-23] MEDS: Enoxaparin 40 mg Syringe SC SCH (09:39)
[2017-01-23] MEDS: cefTRIAXone IV 1 gm in Dextros 50 ML IVPB SCH (09:47)
== END 2017-01-23 12:41 | disposition home health service (06) | DRG 872 ==
LOC: H.TCU 17:08
PROVIDERS: ADMIT Family Medicine; ATTEND Family Medicine
PROC: F07M6FZ Therapeutic Exercise Treatment of Musculoskeletal System - Whole Body using Assistive, Adaptive, Supportive or Protective Equipment (ICD-10-PCS; principal; 2017-01-17)
PROC: F08Z4FZ Home Management Treatment using Assistive, Adaptive, Supportive or Protective Equipment (ICD-10-PCS; 2017-01-17)
PROC: 3E03329 Introduction of Other Anti-infective into Peripheral Vein, Percutaneous Approach (ICD-10-PCS; 2017-01-17)
DX: A41.9 Sepsis, unspecified organism (principal); E11.65 Type 2 diabetes mellitus with hyperglycemia; N39.0 Urinary tract infection, site not specified; E78.00 Pure hypercholesterolemia, unspecified; I10 Essential (primary) hypertension; Z87.891 Personal history of nicotine dependence; M25.562 Pain in left knee; K83.8 Other specified diseases of biliary tract

== ENCOUNTER 2017-03-22 08:54 | Emergency (ER) | payer MEDICARE ==
[2017-03-22 08:54] VITALS: BMI 36.3
[2017-03-22 09:27] VITALS: O2SAT 97
[2017-03-22] MEDS ORDERED: Albuterol-Ipratrop 3 mg / 0.5 (3 ml) UD INH STA (09:39)
--- NOTE | 2017-03-22 10:10 | ED PDOC ---
HPI: General Adult Time Seen by Provider: 03/22/17 09:23 Chief Complaint (Nursing): Flu-like Symptoms Chief Complaint (Provider): Flu-like Symptoms History Per: Patient History/Exam Limitations: no limitations Onset/Duration Of Symptoms: Days (x 3-4) Current Symptoms Are (Timing): Still Present Additional Complaint(s): Matt is a 76 year old male who presents to the emergency department with cough and fever for 3-4 days. Patient was diagnosed with flu, and has subjective fever as per daughter. Patient is currently on day 3 of Tamiflu. Patient states has flu at home. Patient is speaking full sentences PMD: Duncan [place] Past Medical History Reviewed: Historical Data, Nursing Documentation, Vital Signs Vital Signs: Last Vital Signs Temp 99.8 F H 03/22/17 12:51 Pulse 71 03/22/17 12:51 Resp 16 03/22/17 12:51 BP 138/83 03/22/17 12:51 Pulse Ox 97 03/22/17 12:51 - Medical History PMH: Arthritis (as per pt), Diabetes, HTN, Hypercholesterolemia Denies: Chronic Kidney Disease - Surgical History Surgical History: No Surg Hx - Family History Family History: States: Unknown Family Hx - Social History Alcohol: None Drugs: Denies - Home Medications Home Medications: Ambulatory Orders Medication Instructions Recorded Aspirin [Ecotrin] 81 mg PO DAILY 01/13/17 Furosemide [Lasix] 20 mg PO DAILY 01/13/17 Gabapentin [Neurontin] 600 mg PO HS 01/13/17 Losartan [Cozaar] 50 mg PO DAILY 01/13/17 Omeprazole 20 mg PO DAILY 01/13/17 Simvastatin [Zocor] 20 mg PO DAILY 01/13/17 Acetaminophen [Tylenol 325mg tab] 650 mg PO Q4 PRN tab 01/16/17 Guaifenesin/Dextromethorphan 1 each PO Q12 #20 tab.er.12h 01/16/17 [Mucinex Dm ER 1,200-60 mg Tab] Ibuprofen [Motrin Tab] 600 mg PO Q6 PRN tab 01/16/17 SITagliptin [Januvia] 50 mg PO DAILY #30 tab 01/23/17 Albuterol 0.083% [Albuterol 0.083% 3 ml IH Q6H PRN #30 neb 03/22/17 Inhal Jeimy (2.5 mg/3 ml) UD] Nebulizer [Compact Compressor 1 dev XX PRN PRN #1 dev 03/22/17 Nebulizer] - Allergies Allergies/Adverse Reactions: Allergies Allergy/AdvReac Type Severity Reaction Status Date / Time No Known Allergies Allergy Verified 01/16/17 17:06 Review of Systems ROS Statement: Except As Marked, All Systems Reviewed And Found Negative Constitutional: Positive for: Fever (Subjective) Respiratory: Positive for: Cough Physical Exam - Reviewed Nursing Documentation Reviewed: Yes Vital Signs Reviewed: Yes - Physical Exam Appears: Positive for: Well, Non-toxic Head Exam: Positive for: ATRAUMATIC, NORMAL INSPECTION, NORMOCEPHALIC Skin: Positive for: Normal Color, Warm, Dry Eye Exam: Positive for: Normal appearance ENT: Positive for: Normal ENT Inspection Neck: Positive for: Normal Cardiovascular/Chest: Positive for: Regular Rate, Rhythm Respiratory: Positive for: Normal Breath Sounds. Negative for: Respiratory Distress Back: Positive for: Normal Inspection Extremity: Positive for: Normal ROM Neurologic/Psych: Positive for: Alert, value engineer II-XII, Oriented. Negative for: Motor/Sensory Deficits - Laboratory Results Result Diagrams: 03/22/17 10:00 03/22/17 10:00 - ECG Interpretation Of ECG: SR @ 79, PACs, bifascicular block. O2 Sat by Pulse Oximetry: 97 (RA) Pulse Ox Interpretation: Normal Medical Decision Making Medical Decision Making: Time: 09:38 Plan: - CMP - CBC - Chest X-Ray - Duoneb 3 mg/0.5 mg (3 ml) UD - Blood Culture - Glucose, Blood, POC - Peak Flow Pre/Post Treatment Accession No. : [id number] Patient Name / ID : BISHOP DURAN / [id number] Exam Date : 03/22/2017 09:39:11 ( Approved ) Study Comment : Sex / Age : M / 76Y Creator : Jamie Reed MD Dictator : Jamie Reed MD Supervisor Pumping : Safekeeping Clerk : Jamie Reed MD Approver2 : Report Date : 03/22/2017 12:09:51 My Comment : HISTORY: Cough COMPARISON: Chest radiographs 01/19/2017. TECHNIQUE: Chest PA and lateral FINDINGS: LUNGS: No active pulmonary disease. PLEURA: No significant pleural effusion identified. No pneumothorax apparent. CARDIOVASCULAR: Normal. OSSEOUS STRUCTURES: No significant abnormalities. VISUALIZED UPPER ABDOMEN: Normal. OTHER FINDINGS: None. IMPRESSION: No interval acute cardiopulmonary disease appreciated. Scribe Attestation: Documented by Fransisco Beasley, acting as a scribe for Nanda Carmichael MD Provider Scribe Attestation: All medical record entries made by the Scribe were at my direction and personally dictated by me. I have reviewed the chart and agree that the record accurately reflects my personal performance of the history, physical exam, medical decision making, and the department course for this patient. I have also personally directed, reviewed, and agree with the discharge instructions and disposition. Disposition - Clinical Impression Clinical Impression: Influenza - Disposition Disposition: Routine/Home Disposition Time: 12:31 Condition: STABLE Additional Instructions: FOLLOW-UP WITH PMD WITHIN 2 DAYS FOR REEVALUATION. Prescriptions: Albuterol 0.083% [Albuterol 0.083% Inhal Jeimy (2.5 mg/3 ml) UD] 3 ml IH Q6H PRN # 30 neb PRN Reason: Shortness Of Breath Nebulizer [Compact Compressor Nebulizer] 1 dev XX PRN PRN #1 dev PRN Reason: Shortness Of Breath Instructions: Influenza (ED) Forms: Smart Devices (Faroese) Print Language: MONTENEGRIN
[2017-03-22 10:24] LABS: ALB/GLOB RATIO 1.2 (1.0-2.1); ALBUMIN 3.6 g/dL (3.5-5.0); ALT/SGPT 38 U/L (21-72); AST/SGOT 27 U/L (17-59); BLOOD UREA NITROGEN 13 mg/dl (9-20); CALCIUM 8.6 mg/dL (8.4-10.2); GFR AFRICAN-AMERICAN > 60; GFR NON-AFRICAN AMERICAN > 60
[2017-03-22 10:40] LABS: BASO % 0.6 % (0.0-2.0); EOS # 0.1 K/uL (0.0-0.7); EOS % 1.6 % (0.0-4.0); HEMOGLOBIN 13.5 g/dL (12.0-18.0); LYMPH # 1.2 K/uL (1.0-4.3); LYMPH % 28.7 % (20.0-40.0); MEAN CELL VOLUME 87.9 fl (80.0-94.0); MEAN CORPUSCULAR HEMOGLOBIN 28.6 pg (27.0-31.0); MEAN CORPUSCULAR HGB CONC 32.6 g/dL (33.0-37.0); MEAN PLATELET VOLUME 8.2 fl (7.2-11.7); MONO # 0.5 K/uL (0.0-0.8); NEUT # 2.4 K/uL (1.8-7.0); NEUT % 57.1 % (50.0-75.0); NRBC % 0.1 % (0.0-0.0); RBC 4.72 Mil/uL (4.40-5.90); RED CELL DISTRIBUTION WIDTH 14.3 % (11.5-14.5); WHITE BLOOD COUNT 4.3 K/uL (4.8-10.8)
--- NOTE | 2017-03-22 12:11 | RAD ---
HISTORY: Cough COMPARISON: Chest radiographs 01/19/2017. TECHNIQUE: Chest PA and lateral FINDINGS: LUNGS: No active pulmonary disease. PLEURA: No significant pleural effusion identified. No pneumothorax apparent. CARDIOVASCULAR: Normal. OSSEOUS STRUCTURES: No significant abnormalities. VISUALIZED UPPER ABDOMEN: Normal. OTHER FINDINGS: None. IMPRESSION: No interval acute cardiopulmonary disease appreciated.
[2017-03-22 12:52] VITALS: BP 138/83; PULSE 71; RESP 16; TEMP 99.8
--- NOTE | 2017-03-22 17:14 | CARD ---
APPROVED REPORT EKG Measurement Heart [id number] <Conclusion> Sinus rhythm with premature supraventricular complexes Right bundle branch block Left anterior fascicular block Bifascicular block Minimal voltage criteria for LVH, may be normal variant Septal infarct, age undetermined Abnormal ECG
== END 2017-03-22 12:52 | disposition home or self-care (01) ==
LOC: H.ER 08:54
DX: J11.1 Influenza due to unidentified influenza virus with other respiratory manifestations (principal); E11.9 Type 2 diabetes mellitus without complications; E78.00 Pure hypercholesterolemia, unspecified; I10 Essential (primary) hypertension; Z79.82 Long term (current) use of aspirin